=== PATIENT | female | born 1975 | race Caucasian/White ===

== ENCOUNTER 2019-09-21 10:57 | Outpatient (CLI) | payer BC, SELFPAY ==
--- NOTE | ~2019-09-21 | XR_ITS ---
XR shoulder LT min 2V DATE: 09/21/2019 11:27 INDICATION: Left shoulder pain TECHNIQUE: 4 views COMPARISON: None FINDINGS: No fracture or dislocation, periosteal reaction or bone destruction or abnormal soft tissue calcification. IMPRESSION: Negative Reviewed, dictated and finalized at location A. IMPRESSION: Negative
== END 2019-09-21 10:58 | disposition home or self-care (01) ==
LOC: ANHIMG 11:00
PROVIDERS: PCP Family Medicine; Visit Provider Physician Assistant
DX: M25.512 Pain in left shoulder (principal)
CPT/HCPCS: 73030

== ENCOUNTER 2020-02-23 11:47 | Outpatient (NON) | payer BC, SELFPAY ==
[2020-02-26 13:54] LABS: SARS-CoV-2 RNA PCR Negative
== END 2020-02-23 11:48 ==
LOC: ANHCOVIDDT 11:48
PROVIDERS: PCP Family Medicine; Visit Provider Family Medicine
DX: Z20.828 Contact with and (suspected) exposure to other viral communicable diseases (principal); J02.9 Acute pharyngitis, unspecified; R50.9 Fever, unspecified; R51.9 Headache, unspecified
CPT/HCPCS: 87635; C9803; U0003

== ENCOUNTER 2020-03-17 06:39 | Outpatient (CLI) | payer BC, SELFPAY ==
--- NOTE | ~2020-03-17 | MR_ITS ---
EXAMINATION: MR shoulder LT wo con DATE: 03/17/2020 07:56 INDICATION: Left shoulder pain TECHNIQUE: Magnetic resonance imaging (MRI) of the left shoulder was performed without intravenous co ntrast. Sequences included axial PD-weighted FS FSE, coronal oblique PD-weighted FS FSE, coronal obli que T2-weighted FS FSE, sagittal PD-weighted FS FSE, and sagittal T1-weighted SE. COMPARISON: Left shoulder radiograph dated 09/21/2019 FINDINGS: Coracoacromial arch: The acromion undersurface is flat in morphology (type I). The coracoacromial ligament is normal. Mild acromioclavicular arthrosis with mild subarticular cystic changes both sides of the joint space and mild subarticular edema at the lateral clavicle. Rotator cuff: The supraspinatus, infraspinatus and teres minor tendons are normal. The subscapularis tendon is norm al. Normal rotator cuff muscle bulk and signal. Biceps tendon, glenoid labrum and glenohumeral cartilage: Long head of the biceps tendon is normal. Glenoid labrum is normal. Glenohumeral cartilage is normal. Fluid: Physiologic amount of fluid in the glenohumeral joint and biceps tendon sheath. No loose osteochondra l bodies. No abnormal fluid signal in the subacromial/subdeltoid bursa to suggest bursitis. Bones: Bone alignment is normal. No fracture or pathologic marrow replacing process. IMPRESSION: 1. Mild acromioclavicular arthrosis. Otherwise normal left shoulder MRI. Reviewed, dictated and finalized at location A. 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
== END 2020-03-17 06:40 | disposition home or self-care (01) ==
PROVIDERS: PCP Family Medicine; Visit Provider Family Medicine
DX: M75.82 Other shoulder lesions, left shoulder (principal)
CPT/HCPCS: 73221

== ENCOUNTER 2020-05-16 09:25 | Outpatient (CLI) | payer BC, SELFPAY ==
--- NOTE | ~2020-05-16 | MM_ITS ---
EXAMINATION: MM screening [facility] BI w derek HISTORY: Screening mammogram TECHNIQUE: Craniocaudal and mediolateral oblique 3-D tomosynthesis images were obtained and synthetic 2-D images were generated. CAD analysis was submitted and interpreted. COMPARISON: 01/02/2018, 01/19/2016 BREAST PARENCHYMAL COMPOSITION: There are scattered areas of fibroglandular density. FINDINGS: RIGHT BREAST: A stable mass in the upper outer quadrant of the right breast has the appearance of an intramammary lymph node There is no evidence of suspicious mass, calcification, or architectural dist ortion to suggest malignancy. There has been no significant interval change. LEFT BREAST: There is a possible mass in the anterior/middle third of the lower breast best appreciat ed 4 cm from the nipple on craniocaudal tomosynthesis image . IMPRESSION: 1. Possible left breast mass. 2. Additional mammographic views and possible breast ultrasound are recommended. BI-RADS Category 0: Incomplete: Needs additional imaging evaluation. Reviewed, dictated and finalized at location A. NSED THERAPIST IMPRESSION: 1. Possible left breast mass. 2. Additional mammographic views and possible breast ultrasound are recommended . BI-RADS Category 0: Incomplete: Needs additional imaging evaluation.
== END 2020-05-16 09:26 | disposition home or self-care (01) ==
LOC: ANHIMG 09:28
PROVIDERS: Family Provider Family Medicine; PCP Family Medicine; Visit Provider Family Medicine
DX: Z12.31 Encounter for screening mammogram for malignant neoplasm of breast (principal); R92.8 Other abnormal and inconclusive findings on diagnostic imaging of breast
CPT/HCPCS: 77063; 77067

== ENCOUNTER 2020-06-12 13:41 | Outpatient (CLI) | payer BC, SELFPAY ==
--- NOTE | ~2020-06-12 | MMUS_ITS ---
EXAMINATION: MM diagnostic mammo unilat LT, US breast LT limited HISTORY: Follow-up left breast asymmetry TECHNIQUE: Additional 3-D tomosynthesis images of the left breast were performed and synthetic 2-D im ages were generated. CAD analysis was submitted and interpreted. High resolution Limited left breast ultrasound was performed. COMPARISON: 05/16/2020 BREAST PARENCHYMAL COMPOSITION: Breast composed of scattered areas of fibroglandular density. FINDINGS: MAMMOGRAPHIC FINDINGS: There are no suspicious masses, calcifications or architectural distortion in the left breast to sugg est malignancy. ULTRASOUND: Limited left breast ultrasound: At 6:00, 3 cm from the nipple, there is a small hypoechoic mass with central echogenicity measuring 3 mm, most likely benign intramammary lymph node. IMPRESSION: 1. Probable benign intramammary lymph node of the left breast at 6:00, 3 cm from the nipple. 2. Recommend 6 month follow-up left breast ultrasound BI-RADS category 3, probably benign findings. Reviewed, dictated and finalized at location A. 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 Probable benign intramammary lymph node of the left breast at 6:00, 3 cm fro m the nipple. 2. Recommend 6 month follow-up left breast ultrasound BI-RADS category 3, probably benign findings.
== END 2020-06-12 13:42 | disposition home or self-care (01) ==
PROVIDERS: PCP Family Medicine; Visit Provider Family Medicine
DX: N63.20 Unspecified lump in the left breast, unspecified quadrant (principal); R92.8 Other abnormal and inconclusive findings on diagnostic imaging of breast
CPT/HCPCS: 76642; 77065

== ENCOUNTER → 2021-04-22 02:03 | Outpatient (CLI) | payer BC, SELFPAY ==
[2021-04-23 01:23] LABS: SARS-CoV-2 RNA PCR Negative
== END ==
PROVIDERS: PCP Family Medicine; Visit Provider Physician Assistant Medical
DX: R51.9 Headache, unspecified (principal); Z20.822 Contact with and (suspected) exposure to COVID-19
CPT/HCPCS: C9803; U0003; U0005

== ENCOUNTER 2021-07-10 09:21 | Outpatient (CLI) | payer BC, SELFPAY ==
--- NOTE | 2021-07-10 | ECG_ITS ---
Measurements Intervals [place] Rate: 92 P: 69 [place]: 140 QRS: 48 QRSD: 81 T: 53 QT: 349 QTc: 433 Interpretive Statements SINUS RHYTHM NONSPECIFIC ST AND T-WAVE ABNORMALITY ABNORMAL ECG COMPARED TO ECG 04/30/2019 14:06:27 NO SIGNIFICANT CHANGE Electronically Signed On 07-10-2021 17:15:56 CDT by Matthew Lr M.D.
[2021-07-10 10:02] LABS: Alanine Aminotransferase 21 U/L (4-35); Albumin Level 4.8 g/dL (3.5-5.1); Alkaline Phosphatase 85 U/L (38-126); Anion Gap 7 mmol/L (8-16); Aspartate Amino Transferase 26 U/L (14-36); Bilirubin,Total 0.5 mg/dL (0.2-1.3); Blood Urea Nitrogen 8 mg/dL (7-17); Calcium 9.3 mg/dL (8.4-10.2); Carbon Dioxide 29 mmol/L (22-30); Chloride 104 mmol/L (98-107); Cholesterol 307 mg/dL (0-200); Estimated Glomerular Filt Rate > 60; Glucose 109 mg/dL (65-110); HDL Direct 55 mg/dL; Potassium 4.4 mmol/L (3.4-5.0); Sodium 140 mmol/L (137-145); Triglycerides 88 mg/dL (<150)
[2021-07-10 10:15] LABS: LDL Cholesterol Direct 181 mg/dL
[2021-07-10 10:39] LABS: Vitamin D 25 Hydroxy 56.1 ng/mL
== END 2021-07-10 09:22 | disposition home or self-care (01) ==
PROVIDERS: PCP Family Medicine; Visit Provider Plastic Surgery
DX: E53.8 Deficiency of other specified B group vitamins (principal); R79.89 Other specified abnormal findings of blood chemistry; E78.2 Mixed hyperlipidemia; R94.31 Abnormal electrocardiogram [ECG] [EKG]
CPT/HCPCS: 36415; 80053; 80061; 82306; 82607; 93005

== ENCOUNTER 2021-09-09 12:20 | Outpatient (CLI) | payer BC, SELFPAY ==
--- NOTE | ~2021-09-09 | XR_ITS ---
EXAMINATION: XR toe 5th RT min 2V DATE: 09/09/2021 13:38 INDICATION: Posttraumatic right fifth toe pain TECHNIQUE: Dorsal plantar, lateral and 2 oblique views of the right fifth were obtained. COMPARISON: None FINDINGS: Nondisplaced transverse fracture at the proximal metadiaphysis of the right fifth proximal phalanx wi th 30 degrees lateral angulation. No other fractures identified. Joint spaces are normal. IMPRESSION: Nondisplaced fracture across the right fifth proximal phalanx with 30 degrees lateral angulation. Reviewed, dictated and finalized at location B. IMPRESSION: Nondisplaced fracture across the right fifth proximal phalanx with 30 degrees l ateral angulation.
== END 2021-09-09 12:21 | disposition home or self-care (01) ==
PROVIDERS: PCP Family Medicine; Visit Provider Nurse Practitioner Family
DX: S92.514A Nondisplaced fracture of proximal phalanx of right lesser toe(s), initial encounter for closed fracture (principal); X58.XXXA Exposure to other specified factors, initial encounter
CPT/HCPCS: 73660

== ENCOUNTER 2022-08-25 09:59 | Outpatient (CLI) | payer BC, SELFPAY ==
[2022-08-25 14:39] LABS: Kit Draw Collected
== END 2022-08-25 10:00 | disposition home or self-care (01) ==
LOC: ANHGOSHLAB 10:01
PROVIDERS: PCP Family Medicine; Visit Provider Nurse Practitioner Family
DX: E78.2 Mixed hyperlipidemia (principal); R79.89 Other specified abnormal findings of blood chemistry; I10 Essential (primary) hypertension; E04.2 Nontoxic multinodular goiter
CPT/HCPCS: 36415

== ENCOUNTER → 2022-12-03 09:50 | Outpatient (CLI) | payer BC, SELFPAY ==
--- NOTE | ~2022-12-03 | MR_ITS ---
EXAMINATION: MR cervical spine wo con DATE: 12/03/2022 10:54 INDICATION: Cervical radicular pain. TECHNIQUE: Magnetic resonance imaging (MRI) of the cervical spine was performed without intravenous c ontrast. Sequences included sagittal T2-weighted FSE, sagittal T2-weighted FS FSE, sagittal T1-weight ed FSE, axial MERGE, and axial T2-weighted FSE. COMPARISON: None FINDINGS: Bone alignment is normal. Vertebral body heights are normal. There is mildly decreased disc height at C4-C5, C5-C6, and C6-C7. There is increased T2-weighted signal intensity in the spinal cor d from C5-C6 to C7. The following disc levels are specifically discussed: C2-C3: The disc does not extend beyond the endplate margin. There is no uncovertebral joint osteoarth ritis. There is severe right and moderate left facet joint osteoarthritis. There is mild right neural foraminal stenosis. There is no central canal stenosis. C3-C4: There is a central extrusion. There is mild bilateral uncovertebral joint osteoarthritis. Ther e is moderate bilateral facet joint osteoarthritis. There is mild bilateral neural foraminal stenosis . There is mild central canal stenosis. C4-C5: The disc is bulging. There is severe bilateral uncovertebral joint osteoarthritis. There is se jae bilateral facet joint osteoarthritis. There is moderate bilateral neural foraminal stenosis. The re is mild central canal stenosis. C5-C6: The disc is bulging with superimposed central extrusion. There is severe bilateral uncovertebr al joint osteoarthritis. There is severe bilateral facet joint osteoarthritis. There is moderate righ t and mild left neural foraminal stenosis. There is severe central canal stenosis with ventral and do rsal indentation of the spinal cord. C6-C7: The disc is bulging with superimposed right central extrusion with 2.0 cm inferior extension. There is moderate bilateral uncovertebral joint osteoarthritis. There is severe bilateral facet joint osteoarthritis. There is mild lateral neural foraminal stenosis. There is mild central canal stenosi s. C7-T1: The disc does not extend beyond the endplate margin. There is no uncovertebral joint osteoarth ritis. There is mild bilateral facet joint osteoarthritis. There is no neural foraminal stenosis. The re is mild central canal stenosis. IMPRESSION: 1. Myelomalacia from C5-C6 through C7. 2. Severe cervical spondylosis. Reviewed, dictated and finalized at location A.
== END ==
PROVIDERS: PCP Family Medicine; Visit Provider Nurse Practitioner Family
DX: M47.22 Other spondylosis with radiculopathy, cervical region (principal)
CPT/HCPCS: 72141

== ENCOUNTER → 2023-02-04 08:52 | Outpatient (CLI) | payer BC, SELFPAY ==
--- NOTE | ~2023-02-04 | MR_ITS ---
EXAMINATION: MR lumbar spine wo con DATE: 02/04/2023 09:26 INDICATION: Low back pain. Left leg numbness. Right leg weakness. TECHNIQUE: Magnetic resonance imaging (MRI) of the lumbar spine was performed without intravenous con trast. Sequences included sagittal T2-weighted FSE, sagittal T2-weighted FS FSE, sagittal T1-weighted FSE, and axial T2-weighted FSE. COMPARISON: Lumbar spine MRI 11/21/2018 FINDINGS: Bone alignment is normal. Vertebral body heights are normal. There is a chronic left L5 par s defect. There is mildly decreased disc height at L4-L5. The distal spinal cord signal intensity is normal. The conus medullaris is at T12-L1. The following disc levels are specifically discussed: L1-L2: There is a left foraminal protrusion. There is moderate right and mild left facet joint osteoa rthritis. There is mild left neural foraminal stenosis. There is no central canal stenosis. L2-L3: The disc is mildly bulging. There is severe bilateral facet joint osteoarthritis. There is mil d bilateral neural foraminal stenosis. There is no central canal stenosis. L3-L4: The disc is mildly bulging. There is severe bilateral facet joint osteoarthritis. There is mil d bilateral neural foraminal stenosis. There is no central canal stenosis. L4-L5: The disc is bulging and has an annular fissure. There is severe bilateral facet joint osteoart hritis. There is moderate bilateral neural foraminal stenosis. There is mild central canal stenosis. L5-S1: The disc is mildly bulging. There is severe bilateral facet joint osteoarthritis. There is mil d bilateral neural foraminal stenosis. There is no central canal stenosis. IMPRESSION: 1. Moderate spondylosis at L4-L5 with slight worsening. Mild spondylosis at other levels. 2. Chronic left L5 pars defect. Reviewed, dictated and finalized at location E. IMPRESSION: 1. Moderate spondylosis at L4-L5 with slight worsening. Mild spondylosis at oth er levels. 2. Chronic left L5 pars defect.
== END ==
PROVIDERS: PCP Neurological Surgery; Visit Provider Nurse Practitioner Family
DX: M43.06 Spondylolysis, lumbar region (principal)
CPT/HCPCS: 72148

== ENCOUNTER → 2023-03-15 10:01 | Outpatient (CLI) | payer BC, SELFPAY ==
--- NOTE | ~2023-03-15 | XR_ITS ---
AP view of the pelvis and AP and lateral views of the bilateral hips Clinical history: Pain Findings: No acute fracture or dislocation is seen. Osseous alignment is anatomic. Bilateral hip and SI joint spaces are preserved. Soft tissues are unremarkable. Impression: No significant abnormality is seen. Reviewed, dictated and finalized at [facility]. 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
== END ==
DX: M25.552 Pain in left hip (principal); M25.551 Pain in right hip
CPT/HCPCS: 73521

== ENCOUNTER → 2023-04-21 09:28 | Outpatient (CLI) | payer BC, SELFPAY ==
--- NOTE | ~2023-04-21 | XR_ITS ---
XR_CERV2-3V_CR DATE: 04/21/2023 10:08 INDICATION: Cervical myelopathy. Surgery in December 2022 TECHNIQUE: AP, open-mouth, lateral views COMPARISON: None FINDINGS: Status post anterior and interbody cervical spine surgical fusion at C5-6. Mild degenerative disease at C4-5 and C6-7. No fracture or dislocation or locked facet or prevertebral soft tissue swelling. C1 and C2 are normal ly aligned and the odontoid process is intact. IMPRESSION: Status post anterior cervical spine surgical fusion at C5-6 Reviewed, dictated and finalized at Location A. Reviewed, dictated and finalized at location L. ISSIONING EDITOR
--- NOTE | ~2023-04-21 | XR_ITS ---
XR lumbar spine min 4V DATE: 04/21/2023 10:08 INDICATION: Low back pain TECHNIQUE: AP, lateral, flexion and extension lateral standing views COMPARISON: 02/05/2020 MRI lumbar spine 01/19/2016 lumbar spine FINDINGS: Mild lumbar levoscoliosis. Minimal grade 1 anterolisthesis at L3-4 and L4-5. There is no instability on flexion or extension. Mild loss of height at L4-5 interspace. Minimal degenerative spurring at L2-3 and L3-4. No fracture or bone destruction. The pedicles are intact. Sacroiliac joints appear normal. IMPRESSION: Minimal grade 1 anterolisthesis at L3-4 and L4-5 Mild levo scoliosis Minimal degenerative change Reviewed, dictated and finalized at location L. 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
== END ==
PROVIDERS: PCP Nurse Practitioner Family; Visit Provider Neurological Surgery
DX: G95.9 Disease of spinal cord, unspecified (principal); Z98.1 Arthrodesis status; M54.50 Low back pain, unspecified; M41.9 Scoliosis, unspecified
CPT/HCPCS: 72040; 72110

== ENCOUNTER 2023-07-20 10:21 | Outpatient (CLI) | payer BC, SELFPAY ==
--- NOTE | ~2023-07-20 | MM_ITS ---
EXAMINATION: MM screening [facility] BI w derek HISTORY: Screening mammogram TECHNIQUE: Craniocaudal and mediolateral oblique 3-D tomosynthesis images were obtained and synthetic 2-D images were generated. CAD analysis was submitted and interpreted. COMPARISON: 06/12/2020 diagnostic left mammogram and limited left breast ultrasound 05/16/2020 bilateral screening mammogram BREAST PARENCHYMAL COMPOSITION: The breasts are heterogeneously dense, which may obscure small masses . Breast density is increased compared to prior examinations; the patient is currently taking hormone replacement therapy. FINDINGS: There is no evidence of suspicious mass, calcification, or architectural distortion to sugg est malignancy in either breast. There has been no suspicious interval change. IMPRESSION: 1. No mammographic evidence of malignancy. 2. Recommend routine screening mammography in one year. BI-RADS Category 1: Negative Reviewed, dictated and finalized at location A.
== END 2023-07-20 10:22 ==
LOC: MICIMG 10:23
PROVIDERS: PCP Family Medicine; Visit Provider Nurse Practitioner Family
DX: Z12.31 Encounter for screening mammogram for malignant neoplasm of breast (principal)
CPT/HCPCS: 77063; 77067

== ENCOUNTER 2023-09-07 18:22 | Emergency (ER) | payer BC, SELFPAY ==
--- NOTE | ~2023-09-07 | XR_ITS ---
EXAM: XR knee RT min 4V DATE: 09/07/2023 18:48 HISTORY: fall, medial knee pain . COMPARISON: X-ray tibia/fibula 01/06/2016. FINDINGS: Normal mineralization. No fracture or dislocation. No lytic or blastic lesion. Mild tricom partmental osteoarthritis. Small volume joint fluid.. No erosion or periosteal change. Soft tissues w ithin normal limits. IMPRESSION: No acute osseous finding in the right knee. Reviewed, dictated and finalized at location K.
--- NOTE | 2023-09-07 18:26 | ED.LOWEXIN ---
HPI - Extremity Injury (Lower) General Chief Complaint: Extremity Injury, Lower Stated Complaint: R KNEE INJURY Time Seen by Provider: 09/07/23 18:36 Source: patient and RN notes reviewed Mode of arrival: ambulatory Limitations: no limitations History of Present Illness HPI Narrative: 47-year-old female presents with concern for right knee pain. Reports several weeks ago she fell and hit landed on her knee. Reports she had been taking her regularly scheduled pain medication over the last several weeks the pain and started to get better but now she recently moved and has been more active in the pain has gotten worse. She reports medial swelling. She has been wearing a brace that she says helps with pain and swelling. MD complaint: knee injury Related Data Home Medications Medication Instructions Recorded Confirmed duloxetine 60 mg capsule,delayed 60 mg PO BID 09/21/19 09/07/23 release (Cymbalta) buspirone 15 mg tablet 15 mg PO BID 02/06/20 09/07/23 ramelteon 8 mg tablet (Rozerem) 8 mg PO HS 02/06/20 09/07/23 tizanidine 4 mg tablet 4 mg PO TID PRN Muscle Spasm 02/06/20 09/07/23 oxycodone 7.5 mg tablet,oral ONLY 7.5 mg PO Q6H PRN Pain 02/17/21 09/07/23 (not for feeding tubes) dextroamphetamine-amphetamine 30 30 mg PO DAILY 09/16/21 09/07/23 mg tablet (Adderall) lamotrigine 100 mg tablet 100 mg PO BID 09/16/21 09/07/23 (Lamictal) hydroxyzine HCl 25 mg tablet 25 mg PO PRN PRN Anxiety 08/25/22 09/07/23 prazosin 2 mg capsule 4 mg PO QHS 04/21/23 09/07/23 Allergies Allergy/AdvReac Type Severity Reaction Status Date / Time prednisone Allergy Unknown insomnia,ar Verified 09/07/23 18:39 thralgias pregabalin Allergy Unknown Hives Verified 09/07/23 18:39 Sulfa (Sulfonamide Allergy Unknown rash, Verified 09/07/23 18:39 Antibiotics) fevers tramadol Allergy Unknown seizure Verified 09/07/23 18:39 (also on wellbutrin at the time) amoxicillin [From Augmentin] Allergy Nausea and Verified 09/07/23 18:39 Vomiting bupropion Allergy Seizure Verified 09/07/23 18:39 clavulanic acid Allergy Nausea and Verified 09/07/23 18:39 [From Augmentin] Vomiting eszopiclone AdvReac Unknown Other Verified 09/07/23 18:39 Review of Systems Review of Systems: CONSTITUTIONAL: Denies malaise, chills, sweats, or fever. SKIN: Denies rash or itching, open skin, laceration, abrasion, redness, warmth, swelling. MUSCULOSKELETAL: Reports right knee pain NEUROLOGIC: Denies numbness, weakness All systems reviewed & are unremarkable except as noted in HPI and below PMFSH Past Medical History Medical History Anxiety FH: colon cancer aunt FH: colon polyps grandfather Fracture of fifth toe, right, closed proximal phalanx Headache Papanicolaou smear of cervix with atypical squamous cells of undetermined significance (ASC-US) 2019 pap normal /hpv neg Surgical History Surgical History S/P trigger finger release (~05/01/19) Thumb Family History Family History Grandparent Cerebrovascular accident Family history of malignant neoplasm of breast Other Carcinoma of colon Social History Social History Years smoked: 9 Smoking status: Former smoker Tobacco type: cigarettes and e-cigarettes/vaping Smoking end date: 04/11/10 Additional smoking assessment comments: QUIT CIGARETTES, NOW VAPING NICOTINE Alcohol intake: never Substance use: current Substance use type: marijuana Living arrangements: alone 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
[2023-09-07 18:30] VITALS: BP 153/92; PULSE 84; RESP 18; TEMP 37.2; O2SAT 100
== END 2023-09-07 19:11 | disposition home or self-care (01) ==
PROVIDERS: Emergency Provider Nurse Practitioner; PCP Family Medicine
DX: M25.461 Effusion, right knee (principal); F17.290 Nicotine dependence, other tobacco product, uncomplicated; F41.9 Anxiety disorder, unspecified
CPT/HCPCS: 73564; 99213; G0463

== ENCOUNTER 2023-10-12 08:59 | Outpatient (CLI) | payer BC, SELFPAY ==
--- NOTE | ~2023-10-12 | MR_ITS ---
EXAMINATION: MR knee RT wo con DATE: 10/12/2023 09:34 INDICATION: Medial meniscal tear presenting with posttraumatic medial right knee pain and swelling TECHNIQUE: Magnetic resonance imaging (MRI) of the right knee was performed without intravenous contr ast. Sequences included coronal PD-weighted FSE, coronal PD-weighted FS FSE, sagittal T2-weighted FS E, sagittal PD-weighted FS FSE and axial PD weighted fat saturated FSE. COMPARISON: None. FINDINGS: Medial compartment: There is a longitudinal horizontal tear of the posterior body and posterior horn of the medial menisc us. There appears to be some loss of meniscal tissue along the inferior aspect of the posterior horn. There appears be distortion along the inner free edge at the mid body of the meniscus on the radial image and with additional meniscal tissue along the inferior gutter along the anterior portion of the body. Appearance suggests the tear is likely complex with anterior displacement of a meniscal flap a rising from the most posterior body and posterior horn. Small partial-thickness chondral fissuring wi thout degenerative subchondral changes along the medial margin of the anterior weightbearing medial f emoral condyle. Lateral compartment: Lateral meniscus is normal. Articular cartilage is normal. Patellofemoral compartment: Deep chondral fissure with mild underlying cystlike change at the cephalad aspect of the medial savage lar facet. Additional partial-thickness chondral fissure extending inferolaterally to the patellar ap ical ridge without degenerative subchondral changes. Cartilage at the lateral patellar facet and the trochlea remain normal. Ligaments and tendons: Anterior and posterior cruciate ligaments are normal. The medial collateral ligament and fibular anjana ateral ligament complex are normal. The extensor mechanism is normal. The visualized medial and later al hamstring tendons as well as the iliotibial band are normal. Fluid: Small right knee joint effusion at the suprapatellar pouch. No loose osteochondral bodies identified. Very small Brito's cyst. Osseous/other: Aside from the tiny focus of subarticular cystlike change at the lateral patellar facet there is norm al marrow signal. No fracture or pathologic marrow replacing process. IMPRESSION: 1. Tear, likely complex of the body and posterior horn of the medial meniscus with suggestion of a di splaced meniscal flap. 2. Mild osteoarthritis at the medial and patellofemoral compartments. 3. Small right knee joint effusion with very small Brito's cyst. Reviewed, dictated and finalized at location B. IMPRESSION: 1. Tear, likely complex of the body and posterior horn of the medial meniscus w ith suggestion of a displaced meniscal flap. 2. Mild osteoarthritis at the medial and patellofemoral compartments. 3. Small right knee joint effusion with very small Brito's cyst.
== END 2023-10-12 09:00 ==
LOC: GOSHIMG 09:00
PROVIDERS: PCP Family Medicine; Visit Provider Orthopaedic Surgery
DX: S83.241A Other tear of medial meniscus, current injury, right knee, initial encounter (principal); X58.XXXA Exposure to other specified factors, initial encounter; M25.461 Effusion, right knee; M17.11 Unilateral primary osteoarthritis, right knee
CPT/HCPCS: 73721

== ENCOUNTER 2023-11-28 01:57 | Day surgery (SDC) | payer BC, SELFPAY ==
--- NOTE | 2023-11-24 13:58 | PM.IMHP ---
H&P: HPI History of Present Illness Date/Time: 11/24/23 13:58 Chief Complaint: Patient has mechanical catching locking of her right knee. She has failed conservative treatment and she would like to proceed with arthroscopy partial meniscectomy proceed as indicated. Review of Systems Musculoskeletal: Musculoskeletal: Reports arthralgias, Reports joint swelling and Reports stiffness PMFSH Past Medical History Medical History Anxiety FH: colon cancer aunt FH: colon polyps grandfather Fracture of fifth toe, right, closed proximal phalanx Headache Papanicolaou smear of cervix with atypical squamous cells of undetermined significance (ASC-US) 2019 pap normal /hpv neg Surgical History Surgical History H/O spinal fusion S/P trigger finger release (~05/01/19) Thumb Family History Family History Grandparent Cerebrovascular accident Family history of malignant neoplasm of breast Father No problems noted. Mother Hyperlipemia Other Carcinoma of colon Social History Social History Years smoked: 9 Smoking status: Former smoker Tobacco type: cigarettes and e-cigarettes/vaping Second hand tobacco smoke exposure: No Smoking end date: 04/11/10 Additional smoking assessment comments: QUIT CIGARETTES, NOW VAPING NICOTINE Alcohol intake: never Substance use: current Substance use type: marijuana Do You Feel Safe in your Home?: Yes Lack of Transportation: No Lack of Food: Never True Current Housing: I Have Housing Concerned About Future Housing: No Difficulty Paying Gas/Electric Bills: No Difficulty Paying for Meds: YES Currently Unemployed: No Education: Master's Degree or Higher Difficulty w/ Childcare or Family Care: No Living arrangements: with roommate(s) 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 Gender identity (if verbalized by the patient): Female Spiritual care concerns: No Meds Home Medications and Allergies Home Medications Medication Instructions Recorded Confirmed Type duloxetine 60 mg capsule,delayed 60 mg PO BID 09/21/19 10/26/23 History release (Cymbalta) buspirone 15 mg tablet 15 mg PO BID 02/06/20 10/26/23 History ramelteon 8 mg tablet (Rozerem) 8 mg PO HS 02/06/20 10/26/23 History tizanidine 4 mg tablet 4 mg PO TID PRN Muscle Spasm 02/06/20 10/26/23 History dextroamphetamine-amphetamine 30 30 mg PO DAILY 09/16/21 10/26/23 History mg tablet (Adderall) lamotrigine 100 mg tablet 100 mg PO BID 09/16/21 10/26/23 History (Lamictal) hydroxyzine HCl 25 mg tablet 25 mg PO PRN PRN Anxiety 08/25/22 10/26/23 History omeprazole 20 mg capsule,delayed 20 mg PO DAILY #90 caps 04/18/23 10/26/23 Rx release prazosin 2 mg capsule 4 mg PO QHS 04/21/23 10/26/23 History celecoxib 200 mg capsule See Rx Instructions .Route 06/27/23 10/26/23 Rx .COMPLEX #90 caps acyclovir 400 mg tablet See Rx Instructions .Route 08/15/23 10/26/23 Rx .COMPLEX #180 tabs spironolactone 50 mg tablet 50 mg PO DAILY #90 tabs 09/15/23 10/26/23 Rx oxycodone-acetaminophen 7.5 mg-325 tablet PO 09/22/23 10/26/23 History mg tablet tretinoin 0.01 % topical gel 1 applic topical QHS #45 grams 10/26/23 10/26/23 Rx estradiol 0.05 mg-norethindrone See Rx Instructions .Route 11/15/23 Rx 0.14 mg/24 hr semiwkly transderm .COMPLEX #8 patches patch (CombiPatch) Allergies Allergy/AdvReac Type Severity Reaction Status Date / Time prednisone Allergy Unknown insomnia,ar Verified 10/20/23 10:24 thralgias pregabalin Allergy Unknown Hives Verified 10/20/23 10:24 Sulfa (Sulfonamide Allergy Unknown rash, Verified 10/20/23 10:24 Antibiotics) fevers tramadol Allergy Unknown seizure Verified 10/20/23 10:24
[2023-11-25 14:36] VITALS: BMI 24.9
--- NOTE | 2023-11-25 15:09 | PC.NURSE ---
Report to the Outpatient Waiting Room, entrance under the green pavilion located off [facility], at time 0800AM on date 11/28/23 . Planned Procedure Time: __1000AM . Time changes happen often and if your time is changed the preop area will call you the afternoon before. - You and your visitor will be asked to self-screen and do not enter if you have any COVID symptoms. - A mask is optional within the hospital at this time. Patients may have clear liquids (water, carbonated beverages, clear teas, apple juice) until 3 hours prior to surgery with a maximum of 20 ounces. - No food from midnight until time of surgery Take the following medications with a SIP of water the morning of surgery: _ACYCLOVIR, BUSPIRONE, DULOXETINE, HYDROXYZINE, LAMICTAL, PERCOCET DO NOT STOP ANY OF YOUR OTHER PRESCRIPTION MEDICATIONS PRIOR TO SURGERY ?EXCEPT THE FOLLOWING Medications to discontinue per physician CELEBREX Date to take last dose___11/25/23 Please no make-up, nail puerto rican, hairspray, perfume, deodorant, or body powder the day of surgery. No jewelry (including any body piercings) or valuables the day of surgery, leave them at home. Please take a shower or bath the night before, or the morning of, surgery with an antibacterial soap. Wear comfortable, loose fitting clothing. - Jewelry must be removed prior to entering the operating room. Rings and piercings that are not removed may be cut off. - The hospital will not accept responsibility for valuables. - Please leave all valuables, including medications, at home the day of surgery. If you are going home after surgery, a licensed dinkey driver must drive you home. - NO public transportation without another adult if you receive anesthesia. - We recommend that an adult stay with you for 24 hours following discharge. - We also recommend that you do not drive, make important decision, drink alcoholic beverages, or take any drugs that were not prescribed by your health care provider for at least 24 hours after your discharge time. Follow any additional instructions given to you from your surgeon. If you or anyone in your household have experienced Covid symptoms in the past week, please notify your surgeon or the nurse liaison at the phone number below for possible testing. Telephone instructions given to __PAIGE and asked if any additional questions and then verbalized understanding. Patient advised to call surgeon office or pre surgery nurse liaison [phone] if any additional questions.
[2023-11-28] VITALS (9 sets, daily range): BP systolic 98–125; BP diastolic 60–96; PULSE 70–98; RESP 12–18; TEMP 36.1–36.5; O2SAT 97–100
[2023-11-28] MEDS: LACTATED RINGERS 1,000 ML 30 ML IV CONT (08:40)
--- NOTE | 2023-11-28 09:11 | WPDHPUPDATE1 ---
History and Physical Update Update Date/Time: 11/28/23 09:11 History and Physical has been reviewed, including an updated exam of the patient. There are NO changes in the patient's condition. Risks, benefits, and alternatives have been discussed and questions answered. Patient agrees to proceed with procedure.
[2023-11-28 09:21] LABS: Beta HCG Quantitative < 2.39 mIU/ML
[2023-11-28] MEDS: KETOROLAC 15 MG/ML VIAL (*BKC) IV PUSH (09:35)
--- NOTE | 2023-11-28 09:44 | WPDANESEPPF ---
Anes - Initial Pre Proc Eval Procedure: Operation Date: 11/28/23 10:00 Proposed Procedures p Right Knee Arthroscopy with Partial Medial Meniscectomy, Proceed as Indicated - Isael Washburn MD Date/Time: 11/28/23 09:44 Surgeon: Isael Washburn MD Pre Op Diagnosis: Right Medial Meniscal Tear Patient Data Age: 47 Gender: F Height: 1.63 m Weight: 64.5 kg Last Vital Signs Temp 97.7 F 11/28/23 09:38 Pulse 98 11/28/23 09:38 Resp 16 11/28/23 09:38 BP 108/76 11/28/23 09:38 Pulse Ox 99 11/28/23 09:38 O2 Del Method Room Air 11/28/23 09:38 Allergies Allergy/AdvReac Type Severity Reaction Status Date / Time bupropion Allergy Intermediate Seizure Verified 11/25/23 15:08 clavulanic acid Allergy Intermediate Nausea and Verified 11/25/23 15:08 [From Augmentin] Vomiting prednisone Allergy Unknown insomnia,ar Verified 10/20/23 10:24 thralgias pregabalin Allergy Unknown Hives Verified 10/20/23 10:24 Sulfa (Sulfonamide Allergy Unknown rash, Verified 10/20/23 10:24 Antibiotics) fevers tramadol Allergy Unknown seizure Verified 10/20/23 10:24 (also on wellbutrin at the time) eszopiclone AdvReac Unknown Other Verified 10/20/23 10:24 Home Medications Medication Instructions Recorded Confirmed Type duloxetine 60 mg capsule,delayed 60 mg PO BID 09/21/19 11/28/23 History release (Cymbalta) buspirone 15 mg tablet 15 mg PO BID 02/06/20 11/28/23 History ramelteon 8 mg tablet (Rozerem) 8 mg PO HS 02/06/20 11/28/23 History tizanidine 4 mg tablet 4 mg PO TID PRN Muscle Spasm 02/06/20 11/28/23 History dextroamphetamine-amphetamine 30 30 mg PO DAILY 09/16/21 11/28/23 History mg tablet (Adderall) lamotrigine 100 mg tablet 100 mg PO BID 09/16/21 11/28/23 History (Lamictal) hydroxyzine HCl 25 mg tablet 25 mg PO PRN PRN Anxiety 08/25/22 11/28/23 History omeprazole 20 mg capsule,delayed 20 mg PO DAILY #90 caps 04/18/23 11/28/23 Rx release prazosin 2 mg capsule 4 mg PO QHS 04/21/23 11/28/23 History celecoxib 200 mg capsule See Rx Instructions .Route 06/27/23 11/28/23 Rx .COMPLEX #90 caps acyclovir 400 mg tablet See Rx Instructions .Route 08/15/23 11/28/23 Rx .COMPLEX #180 tabs spironolactone 50 mg tablet 50 mg PO DAILY #90 tabs 09/15/23 11/28/23 Rx oxycodone-acetaminophen 7.5 mg-325 1 tablet PO Q6H 09/22/23 11/28/23 History mg tablet tretinoin 0.01 % topical gel 1 applic topical QHS #45 grams 10/26/23 11/28/23 Rx estradiol 0.05 mg-norethindrone See Rx Instructions .Route 11/15/23 11/28/23 Rx 0.14 mg/24 hr semiwkly transderm .COMPLEX #8 patches patch (CombiPatch) Laboratory Tests 11/28/23 08:32 Beta HCG, Quant < 2.39 mIU/ML Patient hx anesthesia problems: none Family hx anesthesia problems: none Results Review: All pre-operative results and documents have been reviewed as part of the pre-operative evaluation. [facility] Past Medical History Medical History Anxiety FH: colon cancer aunt FH: colon polyps grandfather Fracture of fifth toe, right, closed proximal phalanx Headache Papanicolaou smear of cervix with atypical squamous cells of undetermined significance (ASC-US) 2019 pap normal /hpv neg Surgical History Surgical History H/O spinal fusion S/P trigger finger release (~05/01/19) Thumb Family History Family History Grandparent Cerebrovascular accident Family history of malignant neoplasm of breast Father No problems noted. Mother Hyperlipemia Other Carcinoma of colon Social History Social History Smoking packs per day: 0.5 Smoking cigarettes per day: 10.0 Years smoked: 10 Smoking pack-years: 5.00 Smoking status: Current some day smoker Tobacco
[2023-11-28] MEDS: ceFAZolin 2 GM/D5W 50 ML 2 GM/50 ML BAG IVPB (09:49)
[2023-11-28] MEDS: LIDO 1%/EPINEPHRINE 1:100,000 20 ML VIAL 15 ML INFILTRATE (10:15)
--- NOTE | 2023-11-28 10:18 | W.PM.PROC2 ---
Procedure Note - Detailed Date of Procedure 11/28/23 Pre-op Diagnosis Right Medial Meniscal Tear Post-op Diagnosis Same Procedure Performed RIGHT knee arthroscopy with partial meniscectomy Surgeon Isael Washburn MD Anesthesia General Description of Procedure Patient brought to operating room # 8. An anesthetic was administered. The knee was sterilely prepped and draped in the usual manner. Standard portals were used. Superior medial portal was used for the outflow cannula, inferior lateral portal was used for the scope, inferior medial portal was used for the instruments. Arthroscopy was performed, the patellar femoral joint degenerative changes. The medial compartment showed a complex tear. The lateral compartment showed fraying. The ACL was intact. Using baskets and anju the meniscal tear was trimmed back to a stable base so the nothing further could be pulled into the joint. Any loose or delaminated fragments were gently trimmed to a stable base. At this point the instruments were withdrawn, sutures placed and patient left the operating room in satisfactory condition. Estimated Blood Loss 20 Drains No Packing No Pathology None sent Complications No immediate complications Condition Stable Disposition PACU [facility] Billing Surgery - Charge Forward: Surgery Billing (72435 Arsthroscopy, partial Meniscectomy)
[2023-11-28] MEDS: fentaNYL CITRATE INJ (*CRX) 100 MCG/2 ML VIAL 25 MCG IV PUSH ×4 (10:49→11:03)
--- NOTE | 2023-11-28 11:37 | SUR.PHASEII ---
Per patient she has taken oxycodone in the past with no allergic reaction.
[2023-11-28] MEDS: oxyCODONE HCL (*CRX) 5 MG TAB IR PO (11:39)
== END 2023-11-28 12:10 | disposition home or self-care (01) ==
PROVIDERS: PCP Family Medicine; Visit Provider Orthopaedic Surgery
PROC: (CPT 29870; principal; 2023-11-28 10:00)
DX: S83.231A Complex tear of medial meniscus, current injury, right knee, initial encounter (principal); M17.11 Unilateral primary osteoarthritis, right knee; M25.461 Effusion, right knee; M71.21 Synovial cyst of popliteal space [Baker], right knee; F41.9 Anxiety disorder, unspecified; F12.90 Cannabis use, unspecified, uncomplicated; F17.290 Nicotine dependence, other tobacco product, uncomplicated; Z79.891 Long term (current) use of opiate analgesic; Z98.890 Other specified postprocedural states; Z98.1 Arthrodesis status; Z80.0 Family history of malignant neoplasm of digestive organs; Z80.3 Family history of malignant neoplasm of breast; Z82.49 Family history of ischemic heart disease and other diseases of the circulatory system; X58.XXXA Exposure to other specified factors, initial encounter
CPT/HCPCS: 29881; 36415; 84702; A9270; J0690; J1100; J1885; J2250; J2405; J2704; J3010; J7120

== ENCOUNTER 2024-01-27 10:27 | Outpatient (CLI) | payer BC, SELFPAY ==
--- NOTE | ~2024-01-27 | MR_ITS ---
MRI of the cervical spine Clinical History: Neck pain, cervical radiculopathy Technique: Axial T2-weighted and gradient images, and sagittal T1-weighted, T2-weighted, and STIR andree ges were acquired. Findings: No acute fracture or subluxation seen. There is anterior and interbody fusion from C5 to C6 . No suspicious bone marrow signal abnormality seen. At C2-C3, there is no disc bulge or herniation. There is mild right facet arthropathy. No central can al stenosis, cord compression, or neural foraminal narrowing. At C3-C4, there is disc osteophyte complex. No canal stenosis or cord compression. Neural foramina ar e preserved despite mild bilateral facet arthropathy. At C4-C5, there is moderate degenerative disc narrowing with diffuse disc osteophyte complex. There i s mild canal stenosis without colten cord compression. There is bilateral neural foraminal narrowing, left worse than right, with bilateral facet arthropathy, left worse than right. At C5-C6, there is mild canal stenosis but no colten cord compression. There is bilateral neural sylvia inal narrowing. At C6-C7, there is advanced degenerative disc narrowing. There is mild disc osteophyte complex. No ca nal stenosis or cord compression. There is bilateral neural foraminal narrowing. There is T2 hyperintense signal centrally in the cord at the C5-C6 level, possibly relating to chroni c, focal myomalacia changes. Paravertebral soft tissues are unremarkable. Impression: Status post anterior and interbody fusion from C5 to C6. Probable chronic mild malacia changes in the spinal cord at the C5-C6 level with T2 hyperintensity at this region. Moderate degenerative spondylosis, particularly at C4-C5.. Reviewed, dictated and finalized at [facility]. Impression: Status post anterior and interbody fusion from C5 to C6. Probable chronic mild malacia changes in the spinal cord at the C5-C6 level wit h T2 hyperintensity at this region. Moderate degenerative spondylosis, particularly at C4-C5..
== END 2024-01-27 10:28 | disposition home or self-care (01) ==
LOC: GOSHIMG 10:28
PROVIDERS: PCP Nurse Practitioner Family; Visit Provider Nurse Practitioner Family
DX: M47.812 Spondylosis without myelopathy or radiculopathy, cervical region (principal); Z98.1 Arthrodesis status; M54.12 Radiculopathy, cervical region
CPT/HCPCS: 72141

== ENCOUNTER 2024-02-29 08:33 | Outpatient (CLI) | payer BC, SELFPAY ==
--- NOTE | ~2024-02-29 | MR_ITS ---
MRI of the thoracic spine Clinical History: Radiculopathy Technique: Axial T2-weighted and gradient images, and sagittal T1-weighted, T2-weighted, and STIR andree ges were acquired. Findings: There is no fracture or subluxation of the thoracic spine. Vertebral bodies maintain normal height and alignment. No bone marrow signal abnormality seen. No significant disc bulge or herniation seen at any thoracic level. There are moderate to advanced fa cet joint degenerative changes, especially over the lower half of the thoracic spine. No spinal canal stenosis or cord compression evident. Neural foramina appear intact throughout the thoracic spine. No epidural mass or collection seen. No abnormal signal seen in the spinal cord. Paravertebral soft t issues are unremarkable. Impression: Facet joint degenerative changes, otherwise essentially unremarkable exam. Reviewed, dictated and finalized at [facility]. 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
--- NOTE | ~2024-02-29 | MR_ITS ---
MRI of the lumbar spine Clinical History: Radiculopathy Technique: Axial T2-weighted images, and sagittal T1-weighted, T2-weighted, and T2 fat-sat images wer e acquired. Findings: There is no fracture or subluxation of the lumbar spine. Vertebral bodies maintain normal h eight and alignment. No focal bone marrow signal abnormalities seen. Probable mild diffuse red marrow conversion. At L1-L2, L2-L3, L3-L4, there is no disc bulge or herniation. There are moderate to advanced facet pradeep int degenerative changes at these levels. No spinal canal stenosis. There is mild bilateral neural fo raminal narrowing at these levels. At L4-L5, there is mild degenerative disc narrowing. There is diffuse disc bulge with severe facet ar thropathy, resulting in moderate spinal canal stenosis/thecal sac compression. There is moderate to a dvanced left neural foraminal narrowing, and severe right neural foraminal narrowing. At L5-S1, there is minimal disc bulge with severe facet arthropathy. No central canal stenosis. There is minimal bilateral neural foraminal narrowing. Paravertebral soft tissues are unremarkable. Impression: Advanced degenerative spondylosis at L4-L5, as detailed above. Additional mild to moderate degenerative changes, as detailed above. Reviewed, dictated and finalized at location . 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 Additional mild to moderate degenerative changes, as detailed above.
== END 2024-02-29 08:34 | disposition home or self-care (01) ==
LOC: GOSHIMG 08:34
PROVIDERS: PCP Neurological Surgery; Visit Provider Neurological Surgery
DX: M47.896 Other spondylosis, lumbar region (principal); M47.894 Other spondylosis, thoracic region
CPT/HCPCS: 72146; 72148

== ENCOUNTER 2024-10-01 08:14 | Outpatient (CLI) | payer BC, SELFPAY ==
--- NOTE | ~2024-10-01 | MM_ITS ---
EXAMINATION: MM screening cece BI w derek HISTORY: Screening mammogram TECHNIQUE: Craniocaudal and mediolateral oblique 3-D tomosynthesis images were obtained and synthetic 2-D images were generated. CAD analysis was submitted and interpreted. COMPARISON: 07/20/2023, 05/16/2020 BREAST PARENCHYMAL COMPOSITION:Not Dense. There are scattered areas of fibroglandular density. FINDINGS: No suspicious mass, calcification, or architectural distortion are identified in either ashu ast to suggest malignancy. There has been no suspicious interval change. IMPRESSION: No mammographic evidence of malignancy. Recommend routine screening mammography in one year. BI-RADS Category 1: Negative Reviewed, dictated and finalized at location .
== END 2024-10-01 08:15 | disposition home or self-care (01) ==
PROVIDERS: PCP Family Medicine; Visit Provider Nurse Practitioner Family
DX: Z12.31 Encounter for screening mammogram for malignant neoplasm of breast (principal)
CPT/HCPCS: 77063; 77067

== ENCOUNTER 2024-10-16 02:17 | Day surgery (SDC) | payer BC, SELFPAY ==
[2024-09-27 09:41] VITALS: BMI 24.9
--- OUTSIDE RECORDS SUMMARY | 2024-10-16 02:19 | XMS_ITS | Clinical Summary ---
Author Organization [facility] Address [address] [place] [address] Care Team Providers Care Racing Secretary And Handicapper Name Role Phone Job Gold MD Primary Care Provider [phone] Source Comments [facility],non-owned Affiliates and Associated Physician Practices is amultiple site organization consisting of ambulatory clinics and hospital sitesin [place], [place], [place] and [place]. This disclosure is being madepursuant to the Care Everywhere program and may not contain all information available regarding this patient. Last updated 17.[facility] appssavvy Allergies Active Allergy Reactions Criticality Noted Date Comments Augmentin 04/08/2011 Pregabalin Itching 04/01/2015 hives Prednisone Unknown 05/01/2015 INSOMNIA Sulfa Drugs 04/08/2011 Medications * Be aware that medications may not be up to date on this document. Alwaysverify current medications with the patient. dextromethorphan -guaifenesin ER 12hr (MUCINEX DM) 30-600 MG tablet Take 1 Tab by mouth 2 times daily Active cetirizine (ZYRTEC) 10 MG chew tablet Take 10 mg by mouth once daily Active levonorgestrel-e thinyl estradiol (ALESSE; LEVLITE; AVIANE; LUTERA; LESSINA; SRONYX) 0.1-20 MG-MCG tablet Take 1 Tab by mouth once daily Active naproxen-esomepr azole EC (VIMOVO) 500-20 MG tablet Take 1 Tab by mouth 2 times daily,before breakfast and supper Active diclofenac (FLECTOR) 1.3 % patch Apply 1 Patch to skin 2 times daily Active mometasone (NASONEX) 50 MCG/ACT nasal spray [place] 1 [place] into each nostril 2 times daily Active naratriptan (AMERGE) 2.5 MG tablet Take 2.5 mg by mouth once as needed for Migraine Active metoprolol succinate XL 24hr (TOPROL XL) 50 MG tablet Take 50 mg by mouth once daily Active clonazePAM (KLONOPIN) 0.5 MG tablet Take 0.5 mg by mouth 2 times daily Active acyclovir (ZOVIRAX) 400 MG tablet Take 400 mg by mouth 3 times daily Active tiZANidine (ZANAFLEX) 4 MG tablet Take 4 mg by mouth every 8 hours as needed for Muscle Spasms Active hydrocodone-acet aminophen (NORCO) 10-325 MG tablet Take 1 Tab by mouth every 4 hours as needed for Pain Active dexlansoprazole (DEXILANT) 60 MG capsule 1 Cap once daily 30 Cap 3 5 Active ondansetron (ZOFRAN) 4 MG tabletIndication s:Nausea and vomiting, vomiting of unspecified type Take 1 Tab by mouth every 4 hours as needed for Nausea/Vomitin g 60 Tab 0 6 Active prochlorperazine (COMPAZINE) 10 MG tabletIndication s:Nausea without vomiting Take 1 Tab by mouth every 4 hours as needed for Nausea/Vomitin g 60 Tab 1 6 Active Active Problems No known active problems Social History Tobacco Use Types Packs/Day Years Used Date Smoking Tobacco: Former Cigarettes Q uit: 12/24/2011 Smokeless Tobacco: Never Alcohol Use Standard Drinks/Week Comments Yes 0 (1 standard drink = 0.6 oz pur e alcohol) occasional Comments No Sex and Gender Information Value Date Recorded Sex Assigned at Not on file Legal Sex Female 12:53 PM PHYSICAL INTEGRATION PRACTITIONER Gender Identity Not on file Sexual Orientation Not on file Last Filed Vital Signs Vital Sign Reading Time Taken Comments Blood Pressure 122/99 04/01/2015 2:44 PM PHYSICAL INTEGRATION PRACTITIONER Pulse 85 04/01/2015 2:44 PM PHYSICAL INTEGRATION PRACTITIONER Temperature 37.1 C (98.8 F) 04/01/2015 1:34 PM PHYSICAL INTEGRATION PRACTITIONER Respiratory Rate 14 04/01/2015 2:44 PM PHYSICAL INTEGRATION PRACTITIONER Oxygen Saturation 99% 04/01/2015 2:44 PM PHYSICAL INTEGRATION PRACTITIONER Inhaled Oxygen Concentration - - Weight 68 kg (150 lb) 04/01/2015 1:34 PM PHYSICAL INTEGRATION PRACTITIONER Height 160 cm (5' 3) 04/01/2015 1:34 PM PHYSICAL INTEGRATION PRACTITIONER Body Mass Index 26.57 04/01/2015 1:34 PM PHYSICAL INTEGRATION PRACTITIONER Plan of Treatment Health Maintenance Due Date Last Done Comments COLOGUARD (AGES 45-75) - COL ON CA SCREENING 1977 COLON MONITORING 1977 COLONOSCOPY - COLON CA SCREENING 1977 CT COLONOGRAPHY - COLON CA SCREENING 1977 Colorectal Cancer Screening 1977 FIT - COLON CA SCREENING 1977 FLEX SIG - COLON CA SCREENING 1977 LIPID TESTING 1977 MAMMOGRAM 1977 HIV SCREENING 1992 HEPATITIS C SCREENING 12/19/1995 DTAP/TDAP/TD VACCINES (1 - Tdap) 1996 HEPATITIS B VACCINE (1 of 3 - 19+ 3-dose series) 1996 COVID-19 VACCINE (1 - 2023-2 5 season) 2023 DEPRESSION SCREENING 04/11/2024 INFLUENZA VACCINE (Season Ended) 2024 ZOSTER VACCINE (1 of 2) 12/24/2027 HIB VACCINE Aged Out No longer eligi ble based on patient's age to complete this topic HPV VACCINE Aged Out No longer eligi ble based on patient's age to complete this topic MENINGOCOCCAL (Group B) VACC INE SHARED DECISION-MAKING Aged Out No longer eligibl e based on patient's age to complete this topic MENINGOCOCCAL GROUPS A/C/Y/W VACCINE Aged Out No longer eligible b ased on patient's age to complete this topic PNEUMOCOCCAL VACCINE Aged Out No long er eligible based on patient's age to complete this topic Insurance TERRY Care Teams Racing Secretary And Handicapper Relationship Specialty Start Date End Date Job Gold MD [address] [place] [phone] PCP - General 04/07/11
--- OUTSIDE RECORDS SUMMARY | 2024-10-16 02:19 | XMS_ITS | Clinical Summary ---
Author Organization [facility] Address [facility] [place] [address] Care Team Providers Care Animal Warden Name Role Phone Edilma Gold MD Primary Care Provider [phone] Social History Tobacco Use Types Packs/Day Years Used Date Smoking Tobacco: Never Assessed Comments Unknown Sex and Gender Information Value Date Recorded Sex Assigned at Not on file Legal Sex Female 12:11 PM CDT Gender Identity Not on file Sexual Orientation Not on file Plan of Treatment Health Maintenance Due Date Last Done Comments Cervical Cancer Screening Pap Smear (Age 30 to 64) Every 3 Years 1977 Colorectal Cancer Screening Colonoscopy (10 Years) 1977 Annual Physical 1980 Hepatitis C 12/24/1995 Hepatitis B Vaccines (1 of 3 - 19+ 3-dose series) 1996 Cervical Cancer Screening Pap with HPV Testing (Age 30 to 64) Every 5 Years 12/24/2007 Cervical Cancer Screening with HPV 12/24/2007 Mammogram Screening 2017 COVID-19 Vaccine ( season) 2023 05/20/2021, 05/17/2020, 04/19/2020 DTaP, Tdap and Td Vaccines (7 - Td or Tdap) 01/05/2026 01/06/2016, 10/30/1991, 09/22/1982, Additional history exists Meningococcal B Vaccine Aged Out No l onger eligible based on patient's age to complete this topic Meningococcal Vaccine Aged Out No omid meredith eligible based on patient's age to complete this topic Pneumococcal Vaccine: Pediatrics (0 to 5 Years) and At-Risk Patients (6 to 49 Years) Aged Out No longer eligible based on patient's age to complete this topic RSV Immunizations Under 20 Months Aged Out No longer eligible based on patient's age to complete this topic Insurance [facility] Care Teams Animal Warden Relationship Specialty Start Date End Date Edilma Gold MD [facility] [address] [address] PCP - General FAMILY PRACTICE 02/09/23
[2024-10-16 11:28] VITALS: BP 149/88; PULSE 104; RESP 18; TEMP 36.8; O2SAT 98
[2024-10-16 11:35] LABS: BEDSIDEPREGUCG Negative (Negative)
[2024-10-16] MEDS: LACTATED RINGERS 1,000 ML 150 ML IV CONT (11:42)
--- NOTE | 2024-10-16 12:04 | WPDANESEPPF ---
Anes - Initial Pre Proc Eval Procedure: Operation Date: 10/16/24 12:30 Proposed Procedures p Screening Colonoscopy - Trey Sutherland DO Date/Time: 10/16/24 12:04 Surgeon: Trey Sutherland DO Pre Op Diagnosis: Neoplasm screening Patient Data Age: 48 Gender: F Height: 1.63 m Weight: 67.8 kg Last Vital Signs Temp 98.2 F 10/16/24 11:28 Pulse 104 H 10/16/24 11:28 Resp 18 10/16/24 11:28 BP 149/88 H 10/16/24 11:28 Pulse Ox 98 10/16/24 11:28 O2 Del Method Room Air 10/16/24 11:28 Allergies Allergy/AdvReac Type Severity Reaction Status Date / Time bupropion Allergy Intermediate Seizure Verified 10/16/24 11:24 prednisone Allergy Unknown insomnia,ar Verified 10/16/24 11:24 thralgias pregabalin Allergy Unknown Hives Verified 10/16/24 11:24 Sulfa (Sulfonamide Allergy Unknown rash, Verified 10/16/24 11:24 Antibiotics) fevers tramadol Allergy Unknown seizure Verified 10/16/24 11:24 (also on wellbutrin at the time) clavulanic acid (From AdvReac Intermediate Nausea and Verified 10/16/24 11:24 Augmentin) Vomiting eszopiclone AdvReac Unknown Other Verified 10/16/24 11:24 Home Medications ?Medication ?Instructions ?Recorded ?Confirmed ?Type duloxetine 60 mg capsule,delayed 60 mg PO BID 09/21/19 10/16/24 History release (Cymbalta) buspirone 15 mg tablet 15 mg PO BID 02/06/20 10/16/24 History ramelteon 8 mg tablet (Rozerem) 8 mg PO HS 02/06/20 09/27/24 History tizanidine 4 mg tablet 4 mg PO TID PRN Muscle Spasm 02/06/20 09/27/24 History dextroamphetamine-amphetamine 30 30 mg PO DAILY 09/16/21 09/27/24 History mg tablet (Adderall) lamotrigine 100 mg tablet 100 mg PO BID 09/16/21 09/27/24 History (Lamictal) hydroxyzine HCl 25 mg tablet 25 mg PO PRN PRN Anxiety 08/25/22 09/27/24 History prazosin 2 mg capsule 4 mg PO QHS 04/21/23 09/27/24 History acyclovir 400 mg tablet See Rx Instructions .Route 08/15/23 09/27/24 Rx .COMPLEX #180 tabs oxycodone-acetaminophen 7.5 mg-325 1 tablet PO Q6H 09/22/23 10/16/24 History mg tablet hydrocodone 5 mg-acetaminophen 325 1 tablet PO Q4H PRN pain #30 tabs 11/28/23 09/14/24 Rx mg tablet omeprazole 20 mg capsule,delayed 20 mg PO DAILY #90 caps 07/17/24 09/27/24 Rx release Prempro 0.45 mg-1.5 mg tablet See Rx Instructions .Route 09/12/24 09/27/24 Rx (conj estrog-medroxyprogest olayinka) .COMPLEX #28 tabs tretinoin 0.05 % topical cream 1 applic topical QHS #45 grams 09/14/24 09/27/24 Rx spironolactone 50 mg tablet 50 mg PO DAILY #90 tabs 09/17/24 10/16/24 Rx celecoxib 200 mg capsule 200 mg PO DAILY #90 caps 10/08/24 Rx Laboratory Tests 10/16/24 11:26 POC Urine HCG, Qual Negative (Negative) Patient hx anesthesia problems: none Family hx anesthesia problems: none Results Review: All pre-operative results and documents have been reviewed as part of the pre-operative evaluation. [facility] Past Medical History Medical History Fracture of fifth toe, right, closed proximal phalanx Headache Anxiety FH: colon polyps grandfather FH: colon cancer aunt Papanicolaou smear of cervix with atypical squamous cells of undetermined significance (ASC-US) 2019 pap normal /hpv neg Surgical History Surgical History S/P arthroscopic partial medial meniscectomy H/O spinal fusion S/P trigger finger release (~05/01/19) Thumb Family History Family History Grandparent Cerebrovascular accident Family history of malignant neoplasm of breast Father Liver cancer Pancreatic cancer Mother Hyperlipemia Other Colon cancer Other Carcinoma of colon Social History Social History Smoking packs per day: 0.5 Smoking cigarettes per day: 10.0 Years smoked: 10 Smoking pack-years: 5.00 Smoking status: Current some day smoker Tobacco type: e-cigarettes/vaping Second hand tobacco smoke exposure: No Smoking end date: 04/11/10 Additional smoking assessment comments: SWITCHING TO VAPES 2013 Alcohol intake: never Substance use: current Substance use type: marijuana Do You Feel Safe in your Home?: Yes Lack of Transportation: No Lack of Food: Sometimes True Current Housing: I Have Housing Concerned About Future Housing: No Difficulty Paying Gas/Electric Bills: No Difficulty Paying for Meds: YES Currently Unemployed: No Education: Master's Degree or Higher Difficulty w/ Childcare or Family Care: No Living arrangements: with family 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 Pt vapes daily, migranes. Informed Consent: The patient's anesthetic plan and its attendant risks and benefits were discussed with the patient/family/POA. Questions were solicited and answers provided to the satisfaction of the patient/family/POA.
--- NOTE | 2024-10-16 12:42 | PM.IMHP ---
H&P: HPI History of Present Illness Date/Time: 10/16/24 12:42 Chief Complaint: Screening for colorectal cancer Narrative: 48 yo woman presents for colonoscopy. She denies any hematochezia or melena. She does not have 1st degree fam hx colon cancer but has an aunt and grandfather who had colon cancer. Review of Systems Review of Systems: All systems reviewed & are unremarkable except as noted in HPI and below Constitutional: Constitutional: Denies chills, Denies fever(s), Denies headache(s) and Denies weight loss Eyes: Eyes: Denies change in vision ENT: Denies dizziness, Denies headache(s), Denies neck mass and Denies throat swelling Cardiovascular: Cardiovascular: Denies chest pain, Denies lightheadedness and Denies dyspnea Respiratory: Respiratory: Denies cough, Denies dyspnea and Denies wheezing Gastrointestinal: Gastrointestinal: Denies abdominal pain, Denies change in bowel habits, Denies nausea and Denies vomiting Genitourinary: Genitourinary: Denies hematuria and Denies dysuria Musculoskeletal: Musculoskeletal: Reports as per HPI Integumentary/Breasts: Skin/Breast: Reports as per HPI Neurologic: Denies dizziness and Denies headache(s) Allergic/Immunologic: Allergic/Immunologic: Denies throat swelling and Denies wheezing [facility] Past Medical History Medical History Fracture of fifth toe, right, closed proximal phalanx Headache Anxiety FH: colon polyps grandfather FH: colon cancer aunt Papanicolaou smear of cervix with atypical squamous cells of undetermined significance (ASC-US) 2019 pap normal /hpv neg Surgical History Surgical History S/P arthroscopic partial medial meniscectomy H/O spinal fusion S/P trigger finger release (~05/01/19) Thumb Family History Family History Grandparent Cerebrovascular accident Family history of malignant neoplasm of breast Father Liver cancer Pancreatic cancer Mother Hyperlipemia Other Colon cancer Other Carcinoma of colon Social History Social History Smoking packs per day: 0.5 Smoking cigarettes per day: 10.0 Years smoked: 10 Smoking pack-years: 5.00 Smoking status: Current some day smoker Tobacco type: e-cigarettes/vaping Second hand tobacco smoke exposure: No Smoking end date: 04/11/10 Additional smoking assessment comments: SWITCHING TO VAPES 2013 Alcohol intake: never Substance use: current Substance use type: marijuana Do You Feel Safe in your Home?: Yes Lack of Transportation: No Lack of Food: Sometimes True Current Housing: I Have Housing Concerned About Future Housing: No Difficulty Paying Gas/Electric Bills: No Difficulty Paying for Meds: YES Currently Unemployed: No Education: Master's Degree or Higher Difficulty w/ Childcare or Family Care: No Living arrangements: with family 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 Gender identity (if verbalized by the patient): Female Spiritual care concerns: No Meds Home Medications and Allergies Home Medications ?Medication ?Instructions ?Recorded ?Confirmed ?Type duloxetine 60 mg capsule,delayed 60 mg PO BID 09/21/19 10/16/24 History release (Cymbalta) buspirone 15 mg tablet 15 mg PO BID 02/06/20 10/16/24 History ramelteon 8 mg tablet (Rozerem) 8 mg PO HS 02/06/20 09/27/24 History tizanidine 4 mg tablet 4 mg PO TID PRN Muscle Spasm 02/06/20 09/27/24 History dextroamphetamine-amphetamine 30 30 mg PO DAILY 09/16/21 09/27/24 History mg tablet (Adderall) lamotrigine 100 mg tablet 100 mg PO BID 09/16/21 09/27/24 History (Lamictal) hydroxyzine HCl 25 mg tablet 25 mg PO PRN PRN Anxiety 08/25/22 09/27/24 History prazosin 2 mg capsule 4 mg PO QHS 04/21/23 09/27/24 History acyclovir 400 mg tablet See Rx Instructions .Route 08/15/23 09/27/24 Rx .COMPLEX #180 tabs oxycodone-acetaminophen 7.5 mg-325 1 tablet PO Q6H 09/22/23 10/16/24 History mg tablet hydrocodone 5 mg-acetaminophen 325 1 tablet PO Q4H PRN pain #30 tabs 11/28/23 09/14/24 Rx mg tablet omeprazole 20 mg capsule,delayed 20 mg PO DAILY #90 caps 07/17/24 09/27/24 Rx release Prempro 0.45 mg-1.5 mg tablet See Rx Instructions .Route 09/12/24 09/27/24 Rx (conj estrog-medroxyprogest olayinka) .COMPLEX #28 tabs tretinoin 0.05 % topical cream 1 applic topical QHS #45 grams 09/14/24 09/27/24 Rx spironolactone 50 mg tablet 50 mg PO DAILY #90 tabs 09/17/24 10/16/24 Rx celecoxib 200 mg capsule 200 mg PO DAILY #90 caps 10/08/24 Rx Allergies Allergy/AdvReac Type Severity Reaction Status Date / Time bupropion Allergy Intermediate Seizure Verified 10/16/24 11:24 prednisone Allergy Unknown insomnia,ar Verified 10/16/24 11:24 thralgias pregabalin Allergy Unknown Hives Verified 10/16/24 11:24 Sulfa (Sulfonamide Allergy Unknown rash, Verified 10/16/24 11:24 Antibiotics) fevers tramadol Allergy Unknown seizure Verified 10/16/24 11:24 (also on wellbutrin at the time) clavulanic acid (From AdvReac Intermediate Nausea and Verified 10/16/24 11:24 Augmentin) Vomiting eszopiclone AdvReac Unknown Other Verified 10/16/24 11:24 Vital Signs Vital Signs - 24 hr 10/16/24 11:28 Temperature 98.2 F Pulse Rate 104 H Respiratory Rate 18 Blood Pressure 149/88 H Pulse Oximetry 98 Oxygen Delivery Room Air Exam Const: General: no acute distress and alert Orientation/consciousness: patient oriented x3 HENMT: Head: normocephalic and atraumatic Ears: hearing grossly normal bilaterally Face/Nose/Sinus: Normal nares present Mouth: Yes Normal oral and palatal mucosa present Eyes: Periorbital: periorbital findings normal Sclera: sclerae normal EOM: EOMs intact bilaterally Neck: Neck: normal visual inspection, no lymphadenopathy and trachea midline Chest: Chest palpation & inspection: normal inspection of the chest Resp: Effort & Inspection: normal respiratory effort Auscultation: clear to auscultation bilaterally Cardio: Jugular venous distension: no JVD Rate: regular rate Rhythm: regular rhythm Heart sounds: S1 normal heart sound present and S2 normal heart sound present Peripheral pulses: Peripheral pulses 2+ throughout GI: Inspection: normal to inspection GI Palp: Yes Soft to palpation, No Tenderness to palpation present (GI), No Guarding due to palpation present (GI) and No Rebound tenderness present Percussion: Yes normal to percussion Auscultation: normal bowel sounds : General: Yes no CVA tenderness Back/Spine/Pelvis: Back: no CVA tenderness Neuro: General: patient oriented x3, no focal motor deficits and CN's II-XI intact bilaterally Cognition (Neuro): normal cognition Speech: normal speech Motor exam (neuro): 5/5 motor strength present throughout Extrem: General: capillary refill normal and no clubbing, cyanosis or edema Assessment and Plan Assessment and plan (1) Screening for colon cancer: Code(s): Z12.11 - Encounter for screening for malignant neoplasm of colon Status: Acute Assessment and Plan: I have recommended colonoscopy. I have discussed the procedure, risks, benefits, and alternatives. Questions were answered. Patient is agreeable to proceed.
--- NOTE | 2024-10-16 13:26 | S_PTH ---
PATIENT: Yvette Ware LOC: [facility] U#:[id number] AGE/SX: 48/F ROOM: RE10/16/[address]: Trey Sutherland DO : 1975 BED: DIS: 10/16/2024 SPEC #: [id number] RECD: 10/16/24 14:16 STATUS: FABIO RE #: [id number] SILAS: 10/16/24 13:[address]: Trey Sutherland DEPT: [facility] Surgical RECD BY: Deb Davis ENTERED: 10/16/24 14:16 SP TYPE: Surgical OTHR DR: Edilma Gold MD Tissues: A - Rectal Polyp Procedures: Hematoxylin and Eosin Stain Gross and Microscopic Level 4
[2024-10-16 13:27] VITALS: BP 95/60; PULSE 75; RESP 16; O2SAT 100
[2024-10-16 13:37] VITALS: BP 97/61; PULSE 70; RESP 15; O2SAT 98
[2024-10-16 13:47] VITALS: BP 112/59; PULSE 65; RESP 16; O2SAT 99
== END 2024-10-16 13:55 | disposition home or self-care (01) ==
PROVIDERS: Anesthesiology; PCP Family Medicine; Visit Provider Surgery
PROC: 0DJD8ZZ Inspection of Lower Intestinal Tract, Via Natural or Artificial Opening Endoscopic (ICD-10-PCS; CPT 45378; principal; 2024-10-16 12:30)
DX: Z12.11 Encounter for screening for malignant neoplasm of colon (principal); D12.8 Benign neoplasm of rectum; F41.9 Anxiety disorder, unspecified; F17.290 Nicotine dependence, other tobacco product, uncomplicated; F12.90 Cannabis use, unspecified, uncomplicated; Z79.1 Long term (current) use of non-steroidal anti-inflammatories (NSAID); Z79.891 Long term (current) use of opiate analgesic; Z98.890 Other specified postprocedural states; Z98.1 Arthrodesis status; Z83.719 Family history of colon polyps, unspecified; Z80.3 Family history of malignant neoplasm of breast; Z80.0 Family history of malignant neoplasm of digestive organs
CPT/HCPCS: 45380; 88305; J2003; J2704; J7120

== ENCOUNTER 2024-10-24 10:12 | Outpatient (CLI) | payer BC, SELFPAY ==
--- OUTSIDE RECORDS SUMMARY | 2024-10-24 10:27 | XMS_ITS | Patient Health Record ---
Author Organization [facility] As eventblimp [facility] Address [address] [facility] [address] [place] [address] Care Team Providers Care Head Chopper Name Role Phone JESSICA BAUMANN, KAROLINE Primary Care Provider Unaaltagracia doris Alvarez Edmundo Unavailable [phone] Allergies Allergen (clinical drug ingredient) Drug/Non Drug Allergy documented on EMR Reaction Allergy Type Onset Date Status amoxicillin / clavulanate Augmentin Unknown Drug Allergy 08/02/2023 Active pregabalin Lyrica Unknown Drug Allergy 08/02/2023 Activ e predniSONE Unknown Drug Allergy 08/02/2023 Activ e Sulfathiazole Unknown Drug Allergy 08/02/2023 Ac tive tramadol traMADol HCl Unknown Drug Allergy 08/02/2023 Act angie Wellbutrin Unknown Drug Allergy 08/02/2023 Activ e Results Component Value Reference Range Notes UDT Reviewed date:04/05/2024 01:58:14 PM Interpretation: Performing Lab: Notes/Report: THC POS 0 - 50 ng/ml Cocaine NEG 0 - 300 ng/ml Amphetamine POS 0 - 1000 ng/ml Buprenorphine (BUP) NEG 0 - 10 ng/ml Secobarbital (Bar) NEG 0 - 300 ng/ml Oxazepam (BZO) NEG 0 - 300 ng/ml 5-dkkwebfzqq-3,4-gsbuihja-4, 3-dipheny lpyrrolidine (EDDP) NEG 0 - 300 ng/ml Methamphetamine (MET) NEG 0 - 1000 ng/ml Methylenedioxymethamphetamine (MDMA) NEG 0 - 500 ng/ml Morphine (MOP 300/[id number]) NEG 0 - 300 ng/ml Methadone (MTD) NEG 0 - 300 ng/ml Phencyclidine (PCP) NEG 0 - 25 ng/ml Nortriptyline (TCA) NEG 0 - 1000 ng/ml Oxycodone POS 0 - 300 ng/ml x NEG 0 - 300 ng/ml DRUG MONITOR, NALTREXONE, QN , URIN ([id number]) Reviewed date:04/23/2024 12:39:02 PM Interpretation: Performing Lab:AT, [id number] [id number] [id number] Doe, Director - [address] [facility] Notes/Report: FASTING: NO Naltrexone TNP TEST NOT PERFORMED The specimen was sent to a [facility] reference/esoteric laboratory, but we are unable to locate for testing. Notes and Comments This drug testing is for medical treatment only. Analysis was performed as non-forensic testing and these results should be used only by healthcare providers to render diagnosis or treatment, or to monitor progress of medical conditions. Amphetamines Notes: Amphetamine detected is consistent with the use of the drug Amphetamine. Amphetamine can be a prescribed drug and is also a metabolite of methamphetamine. Marijuana Notes: Marijuana Metabolite detected is consistent with exposure to Marijuana (THC) and/or hemp derived products. Some jurisdictions do not include hemp within the definition of Marijuana. LDT Notes: Confirmation tests were developed and their analytical performance characteristics have been determined by [facility]. It has not been cleared or approved by the FDA. This assay has been validated pursuant to the CLIA regulations and is used for clinical purposes. Healthcare Providers needing Interpretation assistance, please contact us at [phone] ( ) M-F, 8am to 10pm EST DRUG MONITOR, MARIJUANA META B, QN, URINE ([id number]) Reviewed date:04/23/2024 12:39:02 PM Interpretation: Performing Lab:[facility], [facility] [address] [place] [place] Notes/Report: FASTING: NO Marijuana Metabolite >5000 <5 ng/mL Marijuana Comments See Stella gonzalez Notes, LDT Notes DRUG MONITOR,AMPHETAMINE, W/ DL, QN URINE ([id number]) Reviewed date:04/23/2024 12:39:01 PM Interpretation: Performing Lab:[facility] [address] [facility], [address] [id number] [place] Notes/Report: FASTING: NO Amphetamine 5669 <250 ng/mL Methamphetamine NEGATIVE <250 ng/mL Amphetamines Comments See Am phetamines Notes, LDT Notes UDT Reviewed date:09/27/2024 09:54:52 AM Interpretation: Performing Lab: Notes/Report: THC P 0 - 50 ng/ml Cocaine N 0 - 300 ng/ml Amphetamine P 0 - 1000 ng/ml Buprenorphine (BUP) N 0 - 10 ng/ml Secobarbital (Bar) N 0 - 300 ng/ml Oxazepam (BZO) N 0 - 300 ng/ml 0-fqsmtpicdd-3,3-peunhixm-8, 3-dipheny lpyrrolidine (EDDP) N 0 - 300 ng/ml Methamphetamine (MET) N 0 - 1000 ng/ml Methylenedioxymethamphetamine (MDMA) N 0 - 500 ng/ml Morphine (MOP 300/[id number]) N 0 - 300 ng/ml Methadone (MTD) N 0 - 300 ng/ml Phencyclidine (PCP) N 0 - 25 ng/ml Nortriptyline (TCA) N 0 - 1000 ng/ml Oxycodone P 0 - 300 ng/ml Reason For Referral No Information Medications Medication SIG (Take, Route, Frequency, Duration) Notes Start Date End Date Status Amphetamine-Dextroamphe t ER 30 MG 1 capsule in the morning Oral Once a day; Duration: 30 days Active Omeprazole 20 MG Oral 08/02/2023 Ac tive Naratriptan HCl 2.5 MG Oral 08/02/2023 Active DULoxetine HCl 60 MG 2 capsules Oral Once a day; Duration: 90 days Active oxyCODONE-Acetaminophen 7.5-325 MG Oral 08/02/2023 Active Acyclovir 400 MG Oral 08/02/2023 Ac tive CombiPatch 0.05-0.14 mg/24 hr Transdermal *Pick strength-form from [facility] for eRX* 08/02/2023 Active Senna 8.6 mg Oral 08/02/2023 Active tiZANidine HCl 4 MG Oral 08/02/2023 Active busPIRone HCl 15 MG 1 tablet Oral Twice a day; Duration: 90 days Active hydrOXYzine HCl 25 MG 1 tablet Oral three times a day; Duration: 30 days As needed Active Vienva 0.1-20 MG-MCG Oral 08/02/2023 Active Rozerem 8 MG 1 tablet at bedtime as needed Oral Once a day; Duration: 30 days Active Metoprolol Succinate ER 50 MG Oral 08/02/2023 Active lamoTRIgine 100 MG 1 tablet Oral twice a day; Duration: 30 days Active Naloxone HCl 4 MG/0.1ML Nasal 08/02/2023 Active DULoxetine HCl 60 MG 2 capsules Oral Once a day; Duration: 30 days Active Spironolactone 50 MG Oral 08/02/2023 Active Prazosin HCl 1 MG 4 capsules at bedtime Orally Once a day; Duration: 30 days take with 5mg capsule Active Prazosin HCl 5 MG 1 capsule at bedtime Orally Once a day; Duration: 30 days Active Immunizations Vaccine Route Administration Date Status Comme nts DTP Unknown 02/03/1978 Administered DTP Unknown 03/02/1978 Administered DTP Unknown 04/01/1978 Administered DTP Unknown 12/21/1979 Administered DTP Unknown 09/22/1982 Administered Influenza virus vaccine, quadrivalent (IIV4), split virus, 0.25 mL dosage Unknown 01/10/2018 Administered Influenza virus vaccine, quadrivalent (IIV4), split virus, 0.25 mL dosage Unknown 01/30/2019 Administered Influenza virus vaccine, quadrivalent (IIV4), split virus, 0.25 mL dosage Unknown 02/06/2020 Administered MMR Unknown 05/16/1979 Administered MMR Unknown 10/30/1991 Administered Moderna Covid-19 Vaccine 1st dose Unknown 04/19/2020 Ad ministered Moderna Covid-19 Vaccine 1st dose Unknown 05/17/2020 Ad ministered Moderna Covid-19 Vaccine 1st dose Unknown 05/20/2021 Ad ministered Novel [id number], preservative free Unknown 12/21/2017 Administered OPV Unknown 04/01/1978 Administered OPV Unknown 06/30/1978 Administered OPV Unknown 10/01/1978 Administered OPV Unknown 12/21/1979 Administered OPV Unknown 09/22/1982 Administered Td (adult), adsorbed Unknown 10/30/1991 Administered Tdap Unknown 01/06/2016 Administered Social History Tobacco Use: Social History Observation Description Date Details (start date - stop date) Former Smoker NA - NA Sex Assigned At : Social History Observation Description Sex Assigned At Female Tobacco Control (Standard) Question Answer Notes Tobacco use: Former smoker Problems Problem Type SNOMED Code ICD Code Onset Dates Problem Status W/U Status Risk Notes Problem Moderate recurrent major depression (16770093) Major depressive disorder, recurrent, moderate (F33.1) Active confirmed Problem Generalized anxiety disorder (46705567) Generalized anxiety disorder (F41.1) Active confirmed Problem Posttraumatic stress disorder (34559371) Post-traumatic stress disorder, chronic (F43.12) Active confirmed Problem Primary insomnia (9606837) Primary insomnia (F51.01) Active confirmed Problem Attention deficit hyperactivity disorder, combined type (80842676) Attention-deficit hyperactivity disorder, combined type (F90.2) Active confirmed Problem Insomnia (994174398) Insomnia, unspecified (G47.00) Active confirmed Problem Chronic fatigue syndrome (disorder) (56139253) Chronic fatigue, unspecified (R53.82) Active confirmed Problem Panic disorder (961031786) Panic disorder [episodic paroxysmal anxiety] without agoraphobia (F41.0) Active confirmed Vital Signs Heart Rate 106 /min 10/24/2024 Height-cm 162.56 cm 10/24/2024 Blood pressure diastolic 92 mm Hg 10/24/2024 Weight-kg 70.31 kg 10/24/2024 Height 64.00 in 10/24/2024 Blood pressure systolic 140 mm Hg 10/24/2024 Weight 155 lbs 10/24/2024 BMI 26.6 kg/m2 10/24/2024 Encounters Encounter Location Date Provider Diagnosis [facility] [address] [facility] [address] [address] 10/24/2024 Edmundo Alvarez Generalized anxiety disorder F41.1 ; Major depressive disorder, recurrent, moderate F33.1 ; Primary insomnia F51.01 ; Post-traumatic stress disorder, chronic F43.12 ; Chronic fatigue, unspecified R53.82 ; Panic disorder [episodic paroxysmal anxiety] without agoraphobia F41.0 ; Other shelter (current) drug therapy Z79.899 ; Attention-deficit hyperactivity disorder, combined type F90.2 ; Encounter for screening for cardiovascular disorders Z13.6 and Dietary counseling and surveillance Z71.3 [facility] [address] [address] 12/20/2023 Edmundo Alvarez Generalized anxiety disorder F41.1 ; Major depressive disorder, recurrent, moderate F33.1 ; Primary insomnia F51.01 ; Post-traumatic stress disorder, chronic F43.12 ; Chronic fatigue, unspecified R53.82 ; Panic disorder [episodic paroxysmal anxiety] without agoraphobia F41.0 ; Other joint terminal attack controller (current) drug therapy Z79.899 and Attention-deficit hyperactivity disorder, combined type F90.2 [facility] [employer] [address] [place] [id number] [facility] [address] [address] 03/06/2024 Edmundo Alvarez Generalized anxiety disorder F41.1 ; Major depressive disorder, recurrent, moderate F33.1 ; Primary insomnia F51.01 ; Post-traumatic stress disorder, chronic F43.12 ; Chronic fatigue, unspecified R53.82 ; Panic disorder [episodic paroxysmal anxiety] without agoraphobia F41.0 ; Other shelter (current) drug therapy Z79.899 and Attention-deficit hyperactivity disorder, combined type F90.2 [facility] [employer] [address] [place] [address] [facility] [address] [address] 04/05/2024 Edmundo Alvarez Generalized anxiety disorder F41.1 ; Major depressive disorder, recurrent, moderate F33.1 ; Primary insomnia F51.01 ; Post-traumatic stress disorder, chronic F43.12 ; Chronic fatigue, unspecified R53.82 ; Panic disorder [episodic paroxysmal anxiety] without agoraphobia F41.0 ; Other shelter (current) drug therapy Z79.899 and Attention-deficit hyperactivity disorder, combined type F90.2 [facility] [employer] [address] [address] 05/01/2024 Edmundo Alvarez Generalized anxiety disorder F41.1 ; Major depressive disorder, recurrent, moderate F33.1 ; Primary insomnia F51.01 ; Post-traumatic stress disorder, chronic F43.12 ; Chronic fatigue, unspecified R53.82 ; Panic disorder [episodic paroxysmal anxiety] without agoraphobia F41.0 ; Other joint terminal attack controller (current) drug therapy Z79.899 and Attention-deficit hyperactivity disorder, combined type F90.2 [facility] [employer] [address] [place] [address] [facility] [address] [facility] [address] [place] [address] 06/26/2024 Edmundo Alvarez Generalized anxiety disorder F41.1 ; Major depressive disorder, recurrent, moderate F33.1 ; Primary insomnia F51.01 ; Post-traumatic stress disorder, chronic F43.12 ; Chronic fatigue, unspecified R53.82 ; Panic disorder [episodic paroxysmal anxiety] without agoraphobia F41.0 ; Other joint terminal attack controller (current) drug therapy Z79.899 and Attention-deficit hyperactivity disorder, combined type F90.2 [facility] [employer] [address] [facility] [address] [place] [address] 07/24/2024 Edmundo Alvarez Generalized anxiety disorder F41.1 ; Major depressive disorder, recurrent, moderate F33.1 ; Primary insomnia F51.01 ; Post-traumatic stress disorder, chronic F43.12 ; Chronic fatigue, unspecified R53.82 ; Panic disorder [episodic paroxysmal anxiety] without agoraphobia F41.0 ; Other shelter (current) drug therapy Z79.899 and Attention-deficit hyperactivity disorder, combined type F90.2 [facility] [employer] [address] [address] 08/28/2024 Edmundo Goodena Encounter for screen ing for depression Z13.31 ; Encounter for screening for cardiovascular disorders Z13.6 ; Dietary counseling and surveillance Z71.3 ; Generalized anxiety disorder F41.1 ; Major depressive disorder, recurrent, moderate F33.1 ; Primary insomnia F51.01 ; Post-traumatic stress disorder, chronic F43.12 ; Chronic fatigue, unspecified R53.82 ; Panic disorder [episodic paroxysmal anxiety] without agoraphobia F41.0 ; Other shelter (current) drug therapy Z79.899 and Attention-deficit hyperactivity disorder, combined type F90.2 [facility] [employer] [address] [address] 09/26/2024 Edmundo Alvarez Encounter for screen ing for depression Z13.31 ; Encounter for screening for cardiovascular disorders Z13.6 ; Dietary counseling and surveillance Z71.3 ; Generalized anxiety disorder F41.1 ; Major depressive disorder, recurrent, moderate F33.1 ; Primary insomnia F51.01 ; Post-traumatic stress disorder, chronic F43.12 ; Chronic fatigue, unspecified R53.82 ; Panic disorder [episodic paroxysmal anxiety] without agoraphobia F41.0 ; Other shelter (current) drug therapy Z79.899 and Attention-deficit hyperactivity disorder, combined type F90.2 [facility], [facility] [address] [place] [address] 09/24/2024 Edmundo Alvarez Primary insomnia F51 .01 [facility] [address] [place] [address] 10/25/2023 Edmundo Alvarez Chronic fatigue, unspecified R53.82 [facility], [facility] [address] [place] [address] 11/24/2023 Edmundo Alvarez Chronic fatigue, unspecified R53.82 [facility], [facility] [address] [place] [address] 01/18/2024 Edmundo Alvarez [facility] [address] [place] [address] 01/24/2024 Edmundo Alvarez Chronic fatigue, unspecified R53.82 [facility] [address] [place] [address] 02/27/2024 Edmundo Alvarez Chronic fatigue, unspecified R53.82 [facility] [employer], [facility] [address] [place] [address] 03/26/2024 Edmundo Alvarez Chronic fatigue, unspecified R53.82 [facility] [address] [place] [address] 04/24/2024 Edmundo Alvarez Chronic fatigue, unspecified R53.82 [facility] [employer], [facility] [address] [place] [address] 05/28/2024 Edmundo Alvarez Chronic fatigue, unspecified R53.82 [facility] [employer], [facility] [address] [place] [address] 08/22/2024 Edmundo Alvarez Chronic fatigue, unspecified R53.82 [facility] [employer], [facility] [address] [place] [address] 09/19/2024 Edmundo Alvarez Chronic fatigue, unspecified R53.82 [facility] [employer], [facility] [address] [place] [address] 09/20/2024 Edmundo Alvarez Chronic fatigue, unspecified R53.82 [facility] [employer] [address] [place] [address] 10/08/2024 Edmundo Alvarez Chronic fatigue, unspecified R53.82 Assessments Encounter Date Diagnosis (ICD Code) Assessment Notes Treatment Notes Treatment Clinical Notes Section Notes 10/25/2023 Chronic fatigue, unspecified (ICD-10 - R53.82) 11/24/2023 Chronic fatigue, unspecified (ICD-10 - R53.82) 12/20/2023 Major depressive disorder, recurrent, moderate (ICD-10 - F33.1) lamotrigine 100mg bid, Duloxetine 60mg - 2 capsules daily she has medical cannabis- helps with sleep and pain 1. Depression: - Patient reports a decrease in depressive symptoms due to improved knee function and reduced pain. - Continue current medications: lamotrigine 200 mg twice a day and duloxetine 60 mg twice a day. Plan: - Reassess depression symptoms at the next visit. 2. Anxiety: - Patient experiences anxiety related to ongoing lawsuits and condo issues, but reports improvement since regaining mobility. - Continue buspirone 15 mg twice a day for anxiety management. Plan: - Encourage the patient to utilize stress-reductio n techniques and consider therapy if needed. 3. Sleep disturbances: - Patient reports improved sleep with the use of hydroxyzine and Rozerem. - Continue hydroxyzine as needed for sleep and Rozerem at bedtime. Plan: - Monitor sleep quality and adjust medications if necessary. 4. Nightmares and PTSD symptoms: - Patient reports persistent nightmares despite taking prazosin 4 mg at bedtime. Plan: - Increase prazosin dosage to 5 mg at bedtime to help reduce nightmare frequency and intensity. - Reevaluate the effectiveness of the increased prazosin dosage at the next visit. 5. ADHD and fatigue: - Patient reports successful management of ADHD symptoms and fatigue with Adderall XR. Plan: - Continue Adderall XR as prescribed and monitor for any changes in symptoms or side effects. Follow-up in 4-6 weeks to reassess the patient's progress, medication effectiveness, and address any new concerns. 12/20/2023 Generalized anxiety disorder (ICD-10 - F41.1) cont buspirone 15mg bid, hydroxyzine 25mg tid prn she has medical cannabis- helps with sleep and pain 1. Depression: - Patient reports a decrease in depressive symptoms due to improved knee function and reduced pain. - Continue current medications: lamotrigine 200 mg twice a day and duloxetine 60 mg twice a day. Plan: - Reassess depression symptoms at the next visit. 2. Anxiety: - Patient experiences anxiety related to ongoing lawsuits and condo issues, but reports improvement since regaining mobility. - Continue buspirone 15 mg twice a day for anxiety management. Plan: - Encourage the patient to utilize stress-reductio n techniques and consider therapy if needed. 3. Sleep disturbances: - Patient reports improved sleep with the use of hydroxyzine and Rozerem. - Continue hydroxyzine as needed for sleep and Rozerem at bedtime. Plan: - Monitor sleep quality and adjust medications if necessary. 4. Nightmares and PTSD symptoms: - Patient reports persistent nightmares despite taking prazosin 4 mg at bedtime. Plan: - Increase prazosin dosage to 5 mg at bedtime to help reduce nightmare frequency and intensity. - Reevaluate the effectiveness of the increased prazosin dosage at the next visit. 5. ADHD and fatigue: - Patient reports successful management of ADHD symptoms and fatigue with Adderall XR. Plan: - Continue Adderall XR as prescribed and monitor for any changes in symptoms or side effects. Follow-up in 4-6 weeks to reassess the patient's progress, medication effectiveness, and address any new concerns. 01/24/2024 Chronic fatigue, unspecified (ICD-10 - R53.82) 02/27/2024 Chronic fatigue, unspecified (ICD-10 - R53.82) 03/06/2024 Generalized anxiety disorder (ICD-10 - F41.1) cont buspirone 15mg bid, hydroxyzine 25mg tid prn she has medical cannabis- helps with sleep and pain 1. Depression: - Continue lamotrigine 100 mg twice a day - Continue duloxetine 60 mg twice a day Plan: - Reevaluate the possibility of Spravato treatment; have Gayla look into insurance coverage and assistance programs - Encourage the patient to explore clinical trials for alternative treatments (e.g., psilocybin, ketamine) through clinicaltrials. gov and the National [place] [employer] 2. Anxiety: - Continue buspirone 15 mg twice a day - Continue hydroxyzine 25 mg three times a day as needed Plan: - Maintain current medication regimen 3. Insomnia: - Continue Rozerem as prescribed Plan: - Maintain current medication regimen 4. PTSD and nightmares: - Continue prazosin 5 mg Plan: - Maintain current medication regimen 5. Chronic fatigue: - Continue Adderall XR 30 mg Plan: - Maintain current medication regimen 6. Medical cannabis use: Plan: - Continue as prescribed for sleep and pain management 8. Social and occupational stressors: Plan: - Encourage the patient to set boundaries and prioritize self-care - Consider discussing stress management techniques and coping strategies in future visits 03/26/2024 Chronic fatigue, unspecified (ICD-10 - R53.82) 04/05/2024 Generalized anxiety disorder (ICD-10 - F41.1) cont buspirone 15mg bid, hydroxyzine 25mg tid prn she has medical cannabis- helps with sleep and pain 1. Depression: - Patient reports an improvement in mood over the past month, partially attributed to the improvement in her mother's mental health. 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 Plan: - Continue current medication regimen, including BuSpar 15 mg twice a day. - Monitor patient's mood and stress levels during follow-up visits. 2. Anxiety: - Patient's mother has been dealing with agoraphobia and is improving. - The patient has been advocating for her mother to receive appropriate treatment. Plan: - Encourage patient to continue supporting her mother's mental health journey. - Maintain open communication about their mental health. 3. ADHD: - Patient is due for a refill of Adderall. Plan: - Refill Adderall prescription as needed. - Monitor patient's response to medication and any potential side effects during follow-up visits. 4. Spravato treatment: - Patient is a candidate for Spravato, but insurance has been denying coverage. Plan: - Contact insurance company to discuss coverage and potential alternatives. - Advocate for the patient's access to appropriate treatment options. 5. Legal issues: - Patient is dealing with ongoing legal issues related to her condo and a breach of contract/tort case. Plan: - Encourage patient to continue working with her molder floor to resolve these issues. - Monitor the impact of these stressors on her mental health during follow-up visits. Follow-up: - Schedule a follow-up appointment in one month to monitor the patient's mental health, medication regimen, and ongoing situational stressors. 04/24/2024 Chronic fatigue, unspecified (ICD-10 - R53.82) 05/01/2024 Generalized anxiety disorder (ICD-10 - F41.1) cont buspirone 15mg bid, hydroxyzine 25mg tid prn she has medical cannabis- helps with sleep and pain 05/28/2024 Chronic fatigue, unspecified (ICD-10 - R53.82) 06/26/2024 Generalized anxiety disorder (ICD-10 - F41.1) cont buspirone 15mg bid, hydroxyzine 25mg tid prn she has medical cannabis- helps with sleep and pain 07/24/2024 Generalized anxiety disorder (ICD-10 - F41.1) cont buspirone 15mg bid, hydroxyzine 25mg tid prn she has medical cannabis- helps with sleep and pain 08/22/2024 Chronic fatigue, unspecified (ICD-10 - R53.82) 09/19/2024 Chronic fatigue, unspecified (ICD-10 - R53.82) 09/20/2024 Chronic fatigue, unspecified (ICD-10 - R53.82) 09/24/2024 Primary insomnia (ICD-10 - F51.01) 08/28/2024 Encounter for screening for depression (ICD-10 - Z13.31) she has medica l cannabis- helps with sleep and pain 09/26/2024 Encounter for screening for depression (ICD-10 - Z13.31) she has medica l cannabis- helps with sleep and pain 10/08/2024 Chronic fatigue, unspecified (ICD-10 - R53.82) 10/24/2024 Major depressive disorder, recurrent, moderate (ICD-10 - F33.1) lamotrigine 100mg bid, Duloxetine 60mg - 2 capsules daily she has medical cannabis- helps with sleep and pain 10/24/2024 Generalized anxiety disorder (ICD-10 - F41.1) cont buspirone 15mg bid, hydroxyzine 25mg tid prn she has medical cannabis- helps with sleep and pain 09/26/2024 Encounter for screening for cardiovascular disorders (ICD-10 - Z13.6) she has medical cannabis- helps with sleep and pain 10/24/2024 Primary insomnia (ICD-10 - F51.01) rozerem 8mg hs she has medical cannabis- helps with sleep and pain 08/28/2024 Encounter for screening for cardiovascular disorders (ICD-10 - Z13.6) she has medical cannabis- helps with sleep and pain 07/24/2024 Major depressive disorder, recurrent, moderate (ICD-10 - F33.1) lamotrigine 100mg bid, Duloxetine 60mg - 2 capsules daily she has medical cannabis- helps with sleep and pain 06/26/2024 Major depressive disorder, recurrent, moderate (ICD-10 - F33.1) lamotrigine 100mg bid, Duloxetine 60mg - 2 capsules daily she has medical cannabis- helps with sleep and pain 05/01/2024 Major depressive disorder, recurrent, moderate (ICD-10 - F33.1) lamotrigine 100mg bid, Duloxetine 60mg - 2 capsules daily she has medical cannabis- helps with sleep and pain 04/05/2024 Major depressive disorder, recurrent, moderate (ICD-10 - F33.1) lamotrigine 100mg bid, Duloxetine 60mg - 2 capsules daily she has medical cannabis- helps with sleep and pain 1. Depression: - Patient reports an improvement in mood over the past month, partially attributed to the improvement in her mother's mental health. 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 Plan: - Continue current medication regimen, including BuSpar 15 mg twice a day. - Monitor patient's mood and stress levels during follow-up visits. 2. Anxiety: - Patient's mother has been dealing with agoraphobia and is improving. - The patient has been advocating for her mother to receive appropriate treatment. Plan: - Encourage patient to continue supporting her mother's mental health journey. - Maintain open communication about their mental health. 3. ADHD: - Patient is due for a refill of Adderall. Plan: - Refill Adderall prescription as needed. - Monitor patient's response to medication and any potential side effects during follow-up visits. 4. Spravato treatment: - Patient is a candidate for Spravato, but insurance has been denying coverage. Plan: - Contact insurance company to discuss coverage and potential alternatives. - Advocate for the patient's access to appropriate treatment options. 5. Legal issues: - Patient is dealing with ongoing legal issues related to her condo and a breach of contract/tort case. Plan: - Encourage patient to continue working with her molder floor to resolve these issues. - Monitor the impact of these stressors on her mental health during follow-up visits. Follow-up: - Schedule a follow-up appointment in one month to monitor the patient's mental health, medication regimen, and ongoing situational stressors. 03/06/2024 Major depressive disorder, recurrent, moderate (ICD-10 - F33.1) lamotrigine 100mg bid, Duloxetine 60mg - 2 capsules daily she has medical cannabis- helps with sleep and pain 1. Depression: - Continue lamotrigine 100 mg twice a day - Continue duloxetine 60 mg twice a day Plan: - Reevaluate the possibility of Spravato treatment; have Gayla look into insurance coverage and assistance programs - Encourage the patient to explore clinical trials for alternative treatments (e.g., psilocybin, ketamine) through [employer] and the [employer] [place] [employer] 2. Anxiety: - Continue buspirone 15 mg twice a day - Continue hydroxyzine 25 mg three times a day as needed Plan: - Maintain current medication regimen 3. Insomnia: - Continue Rozerem as prescribed Plan: - Maintain current medication regimen 4. PTSD and nightmares: - Continue prazosin 5 mg Plan: - Maintain current medication regimen 5. Chronic fatigue: - Continue Adderall XR 30 mg Plan: - Maintain current medication regimen 6. Medical cannabis use: Plan: - Continue as prescribed for sleep and pain management 8. Social and occupational stressors: Plan: - Encourage the patient to set boundaries and prioritize self-care - Consider discussing stress management techniques and coping strategies in future visits 12/20/2023 Primary insomnia (ICD-10 - F51.01) rozerem 8mg hs she has medical cannabis- helps with sleep and pain 1. Depression: - Patient reports a decrease in depressive symptoms due to improved knee function and reduced pain. - Continue current medications: lamotrigine 200 mg twice a day and duloxetine 60 mg twice a day. Plan: - Reassess depression symptoms at the next visit. 2. Anxiety: - Patient experiences anxiety related to ongoing lawsuits and condo issues, but reports improvement since regaining mobility. - Continue buspirone 15 mg twice a day for anxiety management. Plan: - Encourage the patient to utilize stress-reductio n techniques and consider therapy if needed. 3. Sleep disturbances: - Patient reports improved sleep with the use of hydroxyzine and Rozerem. - Continue hydroxyzine as needed for sleep and Rozerem at bedtime. Plan: - Monitor sleep quality and adjust medications if necessary. 4. Nightmares and PTSD symptoms: - Patient reports persistent nightmares despite taking prazosin 4 mg at bedtime. Plan: - Increase prazosin dosage to 5 mg at bedtime to help reduce nightmare frequency and intensity. - Reevaluate the effectiveness of the increased prazosin dosage at the next visit. 5. ADHD and fatigue: - Patient reports successful management of ADHD symptoms and fatigue with Adderall XR. Plan: - Continue Adderall XR as prescribed and monitor for any changes in symptoms or side effects. Follow-up in 4-6 weeks to reassess the patient's progress, medication effectiveness, and address any new concerns. 12/20/2023 Post-traumatic stress disorder, chronic (ICD-10 - F43.12) Prazosin 5mg at bedtime she has medical cannabis- helps with sleep and pain 1. Depression: - Patient reports a decrease in depressive symptoms due to improved knee function and reduced pain. - Continue current medications: lamotrigine 200 mg twice a day and duloxetine 60 mg twice a day. Plan: - Reassess depression symptoms at the next visit. 2. Anxiety: - Patient experiences anxiety related to ongoing lawsuits and condo issues, but reports improvement since regaining mobility. - Continue buspirone 15 mg twice a day for anxiety management. Plan: - Encourage the patient to utilize stress-reductio n techniques and consider therapy if needed. 3. Sleep disturbances: - Patient reports improved sleep with the use of hydroxyzine and Rozerem. - Continue hydroxyzine as needed for sleep and Rozerem at bedtime. Plan: - Monitor sleep quality and adjust medications if necessary. 4. Nightmares and PTSD symptoms: - Patient reports persistent nightmares despite taking prazosin 4 mg at bedtime. Plan: - Increase prazosin dosage to 5 mg at bedtime to help reduce nightmare frequency and intensity. - Reevaluate the effectiveness of the increased prazosin dosage at the next visit. 5. ADHD and fatigue: - Patient reports successful management of ADHD symptoms and fatigue with Adderall XR. Plan: - Continue Adderall XR as prescribed and monitor for any changes in symptoms or side effects. Follow-up in 4-6 weeks to reassess the patient's progress, medication effectiveness, and address any new concerns. 03/06/2024 Primary insomnia (ICD-10 - F51.01) rozerem 8mg hs she has medical cannabis- helps with sleep and pain 1. Depression: - Continue lamotrigine 100 mg twice a day - Continue duloxetine 60 mg twice a day Plan: - Reevaluate the possibility of Spravato treatment; have Gayla look into insurance coverage and assistance programs - Encourage the patient to explore clinical trials for alternative treatments (e.g., psilocybin, ketamine) through [employer] and the [employer] [place] [facility] 2. Anxiety: - Continue buspirone 15 mg twice a day - Continue hydroxyzine 25 mg three times a day as needed Plan: - Maintain current medication regimen 3. Insomnia: - Continue Rozerem as prescribed Plan: - Maintain current medication regimen 4. PTSD and nightmares: - Continue prazosin 5 mg Plan: - Maintain current medication regimen 5. Chronic fatigue: - Continue Adderall XR 30 mg Plan: - Maintain current medication regimen 6. Medical cannabis use: Plan: - Continue as prescribed for sleep and pain management 8. Social and occupational stressors: Plan: - Encourage the patient to set boundaries and prioritize self-care - Consider discussing stress management techniques and coping strategies in future visits 04/05/2024 Primary insomnia (ICD-10 - F51.01) rozerem 8mg hs she has medical cannabis- helps with sleep and pain 1. Depression: - Patient reports an improvement in mood over the past month, partially attributed to the improvement in her mother's mental health. 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 Plan: - Continue current medication regimen, including BuSpar 15 mg twice a day. - Monitor patient's mood and stress levels during follow-up visits. 2. Anxiety: - Patient's mother has been dealing with agoraphobia and is improving. - The patient has been advocating for her mother to receive appropriate treatment. Plan: - Encourage patient to continue supporting her mother's mental health journey. - Maintain open communication about their mental health. 3. ADHD: - Patient is due for a refill of Adderall. Plan: - Refill Adderall prescription as needed. - Monitor patient's response to medication and any potential side effects during follow-up visits. 4. Spravato treatment: - Patient is a candidate for Spravato, but insurance has been denying coverage. Plan: - Contact insurance company to discuss coverage and potential alternatives. - Advocate for the patient's access to appropriate treatment options. 5. Legal issues: - Patient is dealing with ongoing legal issues related to her condo and a breach of contract/tort case. Plan: - Encourage patient to continue working with her molder floor to resolve these issues. - Monitor the impact of these stressors on her mental health during follow-up visits. Follow-up: - Schedule a follow-up appointment in one month to monitor the patient's mental health, medication regimen, and ongoing situational stressors. 05/01/2024 Primary insomnia (ICD-10 - F51.01) rozerem 8mg hs she has medical cannabis- helps with sleep and pain 06/26/2024 Primary insomnia (ICD-10 - F51.01) rozerem 8mg hs she has medical cannabis- helps with sleep and pain 07/24/2024 Primary insomnia (ICD-10 - F51.01) rozerem 8mg hs she has medical cannabis- helps with sleep and pain 08/28/2024 Dietary counseling and surveillance (ICD-10 - Z71.3) she has medical cannabis- helps with sleep and pain 09/26/2024 Dietary counseling and surveillance (ICD-10 - Z71.3) she has medical cannabis- helps with sleep and pain 10/24/2024 Post-traumatic stress disorder, chronic (ICD-10 - F43.12) Prazosin 5mg at bedtime she has medical cannabis- helps with sleep and pain 10/24/2024 Chronic fatigue, unspecified (ICD-10 - R53.82) adderall xr 30mg daily she has medical cannabis- helps with sleep and pain 09/26/2024 Generalized anxiety disorder (ICD-10 - F41.1) cont buspirone 15mg bid, hydroxyzine 25mg tid prn she has medical cannabis- helps with sleep and pain 07/24/2024 Post-traumatic stress disorder, chronic (ICD-10 - F43.12) Prazosin 5mg at bedtime she has medical cannabis- helps with sleep and pain 08/28/2024 Generalized anxiety disorder (ICD-10 - F41.1) cont buspirone 15mg bid, hydroxyzine 25mg tid prn she has medical cannabis- helps with sleep and pain 06/26/2024 Post-traumatic stress disorder, chronic (ICD-10 - F43.12) Prazosin 5mg at bedtime she has medical cannabis- helps with sleep and pain 05/01/2024 Post-traumatic stress disorder, chronic (ICD-10 - F43.12) Prazosin 5mg at bedtime she has medical cannabis- helps with sleep and pain 04/05/2024 Post-traumatic stress disorder, chronic (ICD-10 - F43.12) Prazosin 5mg at bedtime she has medical cannabis- helps with sleep and pain 1. Depression: - Patient reports an improvement in mood over the past month, partially attributed to the improvement in her mother's mental health. 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 Plan: - Continue current medication regimen, including BuSpar 15 mg twice a day. - Monitor patient's mood and stress levels during follow-up visits. 2. Anxiety: - Patient's mother has been dealing with agoraphobia and is improving. - The patient has been advocating for her mother to receive appropriate treatment. Plan: - Encourage patient to continue supporting her mother's mental health journey. - Maintain open communication about their mental health. 3. ADHD: - Patient is due for a refill of Adderall. Plan: - Refill Adderall prescription as needed. - Monitor patient's response to medication and any potential side effects during follow-up visits. 4. Spravato treatment: - Patient is a candidate for Spravato, but insurance has been denying coverage. Plan: - Contact insurance company to discuss coverage and potential alternatives. - Advocate for the patient's access to appropriate treatment options. 5. Legal issues: - Patient is dealing with ongoing legal issues related to her condo and a breach of contract/tort case. Plan: - Encourage patient to continue working with her molder floor to resolve these issues. - Monitor the impact of these stressors on her mental health during follow-up visits. Follow-up: - Schedule a follow-up appointment in one month to monitor the patient's mental health, medication regimen, and ongoing situational stressors. 03/06/2024 Post-traumatic stress disorder, chronic (ICD-10 - F43.12) Prazosin 5mg at bedtime she has medical cannabis- helps with sleep and pain 1. Depression: - Continue lamotrigine 100 mg twice a day - Continue duloxetine 60 mg twice a day Plan: - Reevaluate the possibility of Spravato treatment; have Gayla look into insurance coverage and assistance programs - Encourage the patient to explore clinical trials for alternative treatments (e.g., psilocybin, ketamine) through [employer] and the [employer] [place] [facility] [employer] [facility] 2. Anxiety: - Continue buspirone 15 mg twice a day - Continue hydroxyzine 25 mg three times a day as needed Plan: - Maintain current medication regimen 3. Insomnia: - Continue Rozerem as prescribed Plan: - Maintain current medication regimen 4. PTSD and nightmares: - Continue prazosin 5 mg Plan: - Maintain current medication regimen 5. Chronic fatigue: - Continue Adderall XR 30 mg Plan: - Maintain current medication regimen 6. Medical cannabis use: Plan: - Continue as prescribed for sleep and pain management 8. Social and occupational stressors: Plan: - Encourage the patient to set boundaries and prioritize self-care - Consider discussing stress management techniques and coping strategies in future visits 12/20/2023 Chronic fatigue, unspecified (ICD-10 - R53.82) adderall xr 30mg daily she has medical cannabis- helps with sleep and pain 1. Depression: - Patient reports a decrease in depressive symptoms due to improved knee function and reduced pain. - Continue current medications: lamotrigine 200 mg twice a day and duloxetine 60 mg twice a day. Plan: - Reassess depression symptoms at the next visit. 2. Anxiety: - Patient experiences anxiety related to ongoing lawsuits and condo issues, but reports improvement since regaining mobility. - Continue buspirone 15 mg twice a day for anxiety management. Plan: - Encourage the patient to utilize stress-reductio n techniques and consider therapy if needed. 3. Sleep disturbances: - Patient reports improved sleep with the use of hydroxyzine and Rozerem. - Continue hydroxyzine as needed for sleep and Rozerem at bedtime. Plan: - Monitor sleep quality and adjust medications if necessary. 4. Nightmares and PTSD symptoms: - Patient reports persistent nightmares despite taking prazosin 4 mg at bedtime. Plan: - Increase prazosin dosage to 5 mg at bedtime to help reduce nightmare frequency and intensity. - Reevaluate the effectiveness of the increased prazosin dosage at the next visit. 5. ADHD and fatigue: - Patient reports successful management of ADHD symptoms and fatigue with Adderall XR. Plan: - Continue Adderall XR as prescribed and monitor for any changes in symptoms or side effects. Follow-up in 4-6 weeks to reassess the patient's progress, medication effectiveness, and address any new concerns. 03/06/2024 Chronic fatigue, unspecified (ICD-10 - R53.82) adderall xr 30mg daily she has medical cannabis- helps with sleep and pain 1. Depression: - Continue lamotrigine 100 mg twice a day - Continue duloxetine 60 mg twice a day Plan: - Reevaluate the possibility of Spravato treatment; have Gayla look into insurance coverage and assistance programs - Encourage the patient to explore clinical trials for alternative treatments (e.g., psilocybin, ketamine) through [employer] and the [employer] [place] [facility] 2. Anxiety: - Continue buspirone 15 mg twice a day - Continue hydroxyzine 25 mg three times a day as needed Plan: - Maintain current medication regimen 3. Insomnia: - Continue Rozerem as prescribed Plan: - Maintain current medication regimen 4. PTSD and nightmares: - Continue prazosin 5 mg Plan: - Maintain current medication regimen 5. Chronic fatigue: - Continue Adderall XR 30 mg Plan: - Maintain current medication regimen 6. Medical cannabis use: Plan: - Continue as prescribed for sleep and pain management 8. Social and occupational stressors: Plan: - Encourage the patient to set boundaries and prioritize self-care - Consider discussing stress management techniques and coping strategies in future visits 04/05/2024 Chronic fatigue, unspecified (ICD-10 - R53.82) adderall xr 30mg daily she has medical cannabis- helps with sleep and pain 1. Depression: - Patient reports an improvement in mood over the past month, partially attributed to the improvement in her mother's mental health. 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 Plan: - Continue current medication regimen, including BuSpar 15 mg twice a day. - Monitor patient's mood and stress levels during follow-up visits. 2. Anxiety: - Patient's mother has been dealing with agoraphobia and is improving. - The patient has been advocating for her mother to receive appropriate treatment. Plan: - Encourage patient to continue supporting her mother's mental health journey. - Maintain open communication about their mental health. 3. ADHD: - Patient is due for a refill of Adderall. Plan: - Refill Adderall prescription as needed. - Monitor patient's response to medication and any potential side effects during follow-up visits. 4. Spravato treatment: - Patient is a candidate for Spravato, but insurance has been denying coverage. Plan: - Contact insurance company to discuss coverage and potential alternatives. - Advocate for the patient's access to appropriate treatment options. 5. Legal issues: - Patient is dealing with ongoing legal issues related to her condo and a breach of contract/tort case. Plan: - Encourage patient to continue working with her molder floor to resolve these issues. - Monitor the impact of these stressors on her mental health during follow-up visits. Follow-up: - Schedule a follow-up appointment in one month to monitor the patient's mental health, medication regimen, and ongoing situational stressors. 05/01/2024 Chronic fatigue, unspecified (ICD-10 - R53.82) adderall xr 30mg daily she has medical cannabis- helps with sleep and pain 08/28/2024 Major depressive disorder, recurrent, moderate (ICD-10 - F33.1) lamotrigine 100mg bid, Duloxetine 60mg - 2 capsules daily she has medical cannabis- helps with sleep and pain 07/24/2024 Chronic fatigue, unspecified (ICD-10 - R53.82) adderall xr 30mg daily she has medical cannabis- helps with sleep and pain 06/26/2024 Chronic fatigue, unspecified (ICD-10 - R53.82) adderall xr 30mg daily she has medical cannabis- helps with sleep and pain 09/26/2024 Major depressive disorder, recurrent, moderate (ICD-10 - F33.1) lamotrigine 100mg bid, Duloxetine 60mg - 2 capsules daily she has medical cannabis- helps with sleep and pain 10/24/2024 Panic disorder [episodic paroxysmal anxiety] without agoraphobia (ICD-10 - F41.0) she has medical cannabis- helps with sleep and pain 10/24/2024 Other joint terminal attack controller (current) drug therapy (ICD-10 - Z79.899) she has medical cannabis- helps with sleep and pain 08/28/2024 Primary insomnia (ICD-10 - F51.01) rozerem 8mg hs she has medical cannabis- helps with sleep and pain 09/26/2024 Primary insomnia (ICD-10 - F51.01) rozerem 8mg hs she has medical cannabis- helps with sleep and pain 05/01/2024 Panic disorder [episodic paroxysmal anxiety] without agoraphobia (ICD-10 - F41.0) she has medical cannabis- helps with sleep and pain 06/26/2024 Panic disorder [episodic paroxysmal anxiety] without agoraphobia (ICD-10 - F41.0) she has medical cannabis- helps with sleep and pain 07/24/2024 Panic disorder [episodic paroxysmal anxiety] without agoraphobia (ICD-10 - F41.0) she has medical cannabis- helps with sleep and pain 03/06/2024 Panic disorder [episodic paroxysmal anxiety] without agoraphobia (ICD-10 - F41.0) she has medical cannabis- helps with sleep and pain 1. Depression: - Continue lamotrigine 100 mg twice a day - Continue duloxetine 60 mg twice a day Plan: - Reevaluate the possibility of Spravato treatment; have Gayla look into insurance coverage and assistance programs - Encourage the patient to explore clinical trials for alternative treatments (e.g., psilocybin, ketamine) through [employer] and the [employer] [place] [facility] 2. Anxiety: - Continue buspirone 15 mg twice a day - Continue hydroxyzine 25 mg three times a day as needed Plan: - Maintain current medication regimen 3. Insomnia: - Continue Rozerem as prescribed Plan: - Maintain current medication regimen 4. PTSD and nightmares: - Continue prazosin 5 mg Plan: - Maintain current medication regimen 5. Chronic fatigue: - Continue Adderall XR 30 mg Plan: - Maintain current medication regimen 6. Medical cannabis use: Plan: - Continue as prescribed for sleep and pain management 8. Social and occupational stressors: Plan: - Encourage the patient to set boundaries and prioritize self-care - Consider discussing stress management techniques and coping strategies in future visits 04/05/2024 Panic disorder [episodic paroxysmal anxiety] without agoraphobia (ICD-10 - F41.0) she has medical cannabis- helps with sleep and pain 1. Depression: - Patient reports an improvement in mood over the past month, partially attributed to the improvement in her mother's mental health. 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 Plan: - Continue current medication regimen, including BuSpar 15 mg twice a day. - Monitor patient's mood and stress levels during follow-up visits. 2. Anxiety: - Patient's mother has been dealing with agoraphobia and is improving. - The patient has been advocating for her mother to receive appropriate treatment. Plan: - Encourage patient to continue supporting her mother's mental health journey. - Maintain open communication about their mental health. 3. ADHD: - Patient is due for a refill of Adderall. Plan: - Refill Adderall prescription as needed. - Monitor patient's response to medication and any potential side effects during follow-up visits. 4. Spravato treatment: - Patient is a candidate for Spravato, but insurance has been denying coverage. Plan: - Contact insurance company to discuss coverage and potential alternatives. - Advocate for the patient's access to appropriate treatment options. 5. Legal issues: - Patient is dealing with ongoing legal issues related to her condo and a breach of contract/tort case. Plan: - Encourage patient to continue working with her molder floor to resolve these issues. - Monitor the impact of these stressors on her mental health during follow-up visits. Follow-up: - Schedule a follow-up appointment in one month to monitor the patient's mental health, medication regimen, and ongoing situational stressors. 12/20/2023 Panic disorder [episodic paroxysmal anxiety] without agoraphobia (ICD-10 - F41.0) she has medical cannabis- helps with sleep and pain 1. Depression: - Patient reports a decrease in depressive symptoms due to improved knee function and reduced pain. - Continue current medications: lamotrigine 200 mg twice a day and duloxetine 60 mg twice a day. Plan: - Reassess depression symptoms at the next visit. 2. Anxiety: - Patient experiences anxiety related to ongoing lawsuits and condo issues, but reports improvement since regaining mobility. - Continue buspirone 15 mg twice a day for anxiety management. Plan: - Encourage the patient to utilize stress-reductio n techniques and consider therapy if needed. 3. Sleep disturbances: - Patient reports improved sleep with the use of hydroxyzine and Rozerem. - Continue hydroxyzine as needed for sleep and Rozerem at bedtime. Plan: - Monitor sleep quality and adjust medications if necessary. 4. Nightmares and PTSD symptoms: - Patient reports persistent nightmares despite taking prazosin 4 mg at bedtime. Plan: - Increase prazosin dosage to 5 mg at bedtime to help reduce nightmare frequency and intensity. - Reevaluate the effectiveness of the increased prazosin dosage at the next visit. 5. ADHD and fatigue: - Patient reports successful management of ADHD symptoms and fatigue with Adderall XR. Plan: - Continue Adderall XR as prescribed and monitor for any changes in symptoms or side effects. Follow-up in 4-6 weeks to reassess the patient's progress, medication effectiveness, and address any new concerns. 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 Depression: - Patient reports a decrease in depressive symptoms due to improved knee function and reduced pain. - Continue current medications: lamotrigine 200 mg twice a day and duloxetine 60 mg twice a day. Plan: - Reassess depression symptoms at the next visit. 2. Anxiety: - Patient experiences anxiety related to ongoing lawsuits and condo issues, but reports improvement since regaining mobility. - Continue buspirone 15 mg twice a day for anxiety management. Plan: - Encourage the patient to utilize stress-reductio n techniques and consider therapy if needed. 3. Sleep disturbances: - Patient reports improved sleep with the use of hydroxyzine and Rozerem. - Continue hydroxyzine as needed for sleep and Rozerem at bedtime. Plan: - Monitor sleep quality and adjust medications if necessary. 4. Nightmares and PTSD symptoms: - Patient reports persistent nightmares despite taking prazosin 4 mg at bedtime. Plan: - Increase prazosin dosage to 5 mg at bedtime to help reduce nightmare frequency and intensity. - Reevaluate the effectiveness of the increased prazosin dosage at the next visit. 5. ADHD and fatigue: - Patient reports successful management of ADHD symptoms and fatigue with Adderall XR. Plan: - Continue Adderall XR as prescribed and monitor for any changes in symptoms or side effects. Follow-up in 4-6 weeks to reassess the patient's progress, medication effectiveness, and address any new concerns. 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 Depression: - Patient reports an improvement in mood over the past month, partially attributed to the improvement in her mother's mental health. 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 Plan: - Continue current medication regimen, including BuSpar 15 mg twice a day. - Monitor patient's mood and stress levels during follow-up visits. 2. Anxiety: - Patient's mother has been dealing with agoraphobia and is improving. - The patient has been advocating for her mother to receive appropriate treatment. Plan: - Encourage patient to continue supporting her mother's mental health journey. - Maintain open communication about their mental health. 3. ADHD: - Patient is due for a refill of Adderall. Plan: - Refill Adderall prescription as needed. - Monitor patient's response to medication and any potential side effects during follow-up visits. 4. Spravato treatment: - Patient is a candidate for Spravato, but insurance has been denying coverage. Plan: - Contact insurance company to discuss coverage and potential alternatives. - Advocate for the patient's access to appropriate treatment options. 5. Legal issues: - Patient is dealing with ongoing legal issues related to her condo and a breach of contract/tort case. Plan: - Encourage patient to continue working with her molder floor to resolve these issues. - Monitor the impact of these stressors on her mental health during follow-up visits. Follow-up: - Schedule a follow-up appointment in one month to monitor the patient's mental health, medication regimen, and ongoing situational stressors. 03/06/2024 Other shelter (current) drug therapy (ICD-10 - Z79.899) she has medical cannabis- helps with sleep and pain 1. Depression: - Continue lamotrigine 100 mg twice a day - Continue duloxetine 60 mg twice a day Plan: - Reevaluate the possibility of Spravato treatment; have Gayla look into insurance coverage and assistance programs - Encourage the patient to explore clinical trials for alternative treatments (e.g., psilocybin, ketamine) through [employer] go[employer] and the [employer] [place] [employer] 2. Anxiety: - Continue buspirone 15 mg twice a day - Continue hydroxyzine 25 mg three times a day as needed Plan: - Maintain current medication regimen 3. Insomnia: - Continue Rozerem as prescribed Plan: - Maintain current medication regimen 4. PTSD and nightmares: - Continue prazosin 5 mg Plan: - Maintain current medication regimen 5. Chronic fatigue: - Continue Adderall XR 30 mg Plan: - Maintain current medication regimen 6. Medical cannabis use: Plan: - Continue as prescribed for sleep and pain management 8. 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 (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) drug therapy (ICD-10 - Z79.899) she has medical cannabis- helps with sleep and pain 09/26/2024 Post-traumatic stress disorder, chronic (ICD-10 - F43.12) Prazosin 5mg at bedtime she has medical cannabis- helps with sleep and pain 10/24/2024 Attention-deficit hyperactivity disorder, combined type (ICD-10 - F90.2) she has medical cannabis- helps with sleep and pain 08/28/2024 Chronic fatigue, unspecified (ICD-10 - R53.82) adderall xr 30mg daily she has medical cannabis- helps with sleep and pain 09/26/2024 Chronic fatigue, unspecified (ICD-10 - R53.82) adderall xr 30mg daily she has medical cannabis- helps with sleep and pain 07/24/2024 Attention-deficit hyperactivity disorder, combined type (ICD-10 - F90.2) she has medical cannabis- helps with sleep and pain 06/26/2024 Attention-deficit hyperactivity disorder, combined type (ICD-10 - F90.2) she has medical cannabis- helps with sleep and pain 05/01/2024 Attention-deficit hyperactivity disorder, combined type (ICD-10 - F90.2) she has medical cannabis- helps with sleep and pain 03/06/2024 Attention-deficit hyperactivity disorder, combined type (ICD-10 - F90.2) she has medical cannabis- helps with sleep and pain 1. Depression: - Continue lamotrigine 100 mg twice a day - Continue duloxetine 60 mg twice a day Plan: - Reevaluate the possibility of Spravato treatment; have Gayla look into insurance coverage and assistance programs - Encourage the patient to explore clinical trials for alternative treatments (e.g., psilocybin, ketamine) through [employer] and the [employer] [place] [employer] [facility] 2. Anxiety: - Continue buspirone 15 mg twice a day - Continue hydroxyzine 25 mg three times a day as needed Plan: - Maintain current medication regimen 3. Insomnia: - Continue Rozerem as prescribed Plan: - Maintain current medication regimen 4. PTSD and nightmares: - Continue prazosin 5 mg Plan: - Maintain current medication regimen 5. Chronic fatigue: - Continue Adderall XR 30 mg Plan: - Maintain current medication regimen 6. Medical cannabis use: Plan: - Continue as prescribed for sleep and pain management 8. Social and occupational stressors: Plan: - Encourage the patient to set boundaries and prioritize self-care - Consider discussing stress management techniques and coping strategies in future visits 04/05/2024 Attention-deficit hyperactivity disorder, combined type (ICD-10 - F90.2) she has medical cannabis- helps with sleep and pain 1. Depression: - Patient reports an improvement in mood over the past month, partially attributed to the improvement in her mother's mental health. 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 Plan: - Continue current medication regimen, including BuSpar 15 mg twice a day. - Monitor patient's mood and stress levels during follow-up visits. 2. Anxiety: - Patient's mother has been dealing with agoraphobia and is improving. - The patient has been advocating for her mother to receive appropriate treatment. Plan: - Encourage patient to continue supporting her mother's mental health journey. - Maintain open communication about their mental health. 3. ADHD: - Patient is due for a refill of Adderall. Plan: - Refill Adderall prescription as needed. - Monitor patient's response to medication and any potential side effects during follow-up visits. 4. Spravato treatment: - Patient is a candidate for Spravato, but insurance has been denying coverage. Plan: - Contact insurance company to discuss coverage and potential alternatives. - Advocate for the patient's access to appropriate treatment options. 5. Legal issues: - Patient is dealing with ongoing legal issues related to her condo and a breach of contract/tort case. Plan: - Encourage patient to continue working with her molder floor to resolve these issues. - Monitor the impact of these stressors on her mental health during follow-up visits. Follow-up: - Schedule a follow-up appointment in one month to monitor the patient's mental health, medication regimen, and ongoing situational stressors. 12/20/2023 Attention-deficit hyperactivity disorder, combined type (ICD-10 - F90.2) she has medical cannabis- helps with sleep and pain 1. Depression: - Patient reports a decrease in depressive symptoms due to improved knee function and reduced pain. - Continue current medications: lamotrigine 200 mg twice a day and duloxetine 60 mg twice a day. Plan: - Reassess depression symptoms at the next visit. 2. Anxiety: - Patient experiences anxiety related to ongoing lawsuits and condo issues, but reports improvement since regaining mobility. - Continue buspirone 15 mg twice a day for anxiety management. Plan: - Encourage the patient to utilize stress-reductio n techniques and consider therapy if needed. 3. Sleep disturbances: - Patient reports improved sleep with the use of hydroxyzine and Rozerem. - Continue hydroxyzine as needed for sleep and Rozerem at bedtime. Plan: - Monitor sleep quality and adjust medications if necessary. 4. Nightmares and PTSD symptoms: - Patient reports persistent nightmares despite taking prazosin 4 mg at bedtime. Plan: - Increase prazosin dosage to 5 mg at bedtime to help reduce nightmare frequency and intensity. - Reevaluate the effectiveness of the increased prazosin dosage at the next visit. 5. ADHD and fatigue: - Patient reports successful management of ADHD symptoms and fatigue with Adderall XR. Plan: - Continue Adderall XR as prescribed and monitor for any changes in symptoms or side effects. Follow-up in 4-6 weeks to reassess the patient's progress, medication effectiveness, and address any new concerns. 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 (current) drug therapy (ICD-10 - Z79.899) she has medical cannabis- helps with sleep and pain 10/24/2024 Dietary counseling and surveillance (ICD-10 - Z71.3) she has medical cannabis- helps with sleep and pain 08/28/2024 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 Depression: - Patient reports improvement in depressive symptoms but continues to experience mood fluctuations due to ongoing stressors (selling property, lawsuits, financial issues). - Currently on Lamotrigine 100 mg twice a day, Duloxetine 60 mg twice a day. Plan: - Continue current medication regimen. - Monitor patient's progress and consider adjustments to the treatment plan as needed. 2. Anxiety: - Patient experiences anxiety, which they channel into organizing and moving items. - Currently on Buspirone 15 mg twice a day, Hydroxyzine 25 mg three times a day as needed. Plan: - Continue current medication regimen. - Encourage the patient to explore additional coping strategies, such as relaxation techniques or therapy. 3. Insomnia: - Patient reports improvement in sleep quality with Rozerem, but nightmares persist. - Currently on Rozerem 8 mg for sleep. Plan: - Continue current medication regimen. - Monitor patient's progress and consider adjustments to the treatment plan as needed. 4. Nightmares: - Patient experiences vivid, unrelated nightmares. - Currently on Prazosin (partial refill remaining). Plan: - Continue Prazosin and monitor for improvement. - Reassess the need for adjustments to the treatment plan as the patient's overall mental health improves. 5. Fatigue and focus: - Patient reports Adderall XR 30 mg helps with focusing. Plan: - Continue Adderall XR 30 mg for fatigue and focus. - Monitor patient's progress and consider adjustments to the treatment plan as needed. Follow-up: - Schedule a follow-up appointment in 1-2 months to monitor the patient's progress and reassess the treatment plan as needed. she has medical cannabis- helps with sleep and pain 06/26/2024 Other 1. 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 - Current PHQ-9 score is 16, indicating moderately severe depression. - Symptoms include sleep disturbances, low energy, anhedonia, poor concentration, and occasional passive suicidal ideation without active intent. - Multiple medication trials over the past 20+ years have failed to provide adequate symptom relief. - Recent insurance denial for Spravato (esketamine) treatment. Plan: - Resubmit appeal for Spravato treatment with updated PHQ-9 score (16) and clarification of no current substance use disorder. - Administer additional depression rating scale (e.g., Leung Rating Scale) to support Spravato appeal. - Refill prazosin (dose and frequency not specified). - Refill Adderall (dose and frequency not specified). - Continue current antidepressant regimen (specific medications not mentioned). - Follow up as scheduled for ongoing management of treatment-resist ant depression. 2. Chronic Pain: - Patient is followed by pain management for chronic pain of unspecified etiology. - Current treatment includes oxycodone 7.5 mg (frequency not specified) and medical marijuana. - Patient reports a 50% reduction in opioid use since starting medical marijuana. - Adherence to pain management protocol is closely monitored with regular appointments every 3 weeks, urine drug screens, and pill counts. 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 - Maintain current pain management regimen with oxycodone 7.5 mg and medical marijuana. - Adhere to pain management protocols including drug screens and pill counts. she has medical cannabis- helps with sleep and pain 07/24/2024 Sharron Clark presents with ongoing PTSD symptoms, including nightmares and hypervigilance, while dealing with legal issues related to a condo dispute and personal injury. Posttraumatic Stress Disorder (PTSD) Assessment: Patient continues to experience PTSD symptoms, particularly nightmares and hypervigilance. The ongoing legal issues related to the condo dispute are likely exacerbating her symptoms. She reports dark, emotionally distressing nightmares involving hysterical crying, which she attributes to suppressing emotions during the day. The patient anticipates a potential worsening of nightmares once the current stressors resolve. Prazosin has been effective in managing nightmares, with no significant side effects other than initial blood pressure changes. Plan: - Increase prazosin from 5 mg to 6 mg PO at bedtime for nightmare management - Informed patient of potential for lowered blood pressure and gradual titration - Advised on possibility of future dose reduction as symptoms improve - Continue current medications: - Lamotrigine 2 tablets twice daily - Duloxetine 60 mg daily - Encourage increased daytime use of hydroxyzine for anxiety management - Follow up in one month Anxiety Assessment: Patient reports ongoing anxiety symptoms, manifesting as skin picking behavior around fingernails. Current treatment includes hydroxyzine as needed, which may be underutilized during daytime hours. Plan: - Encourage more frequent daytime use of hydroxyzine for anxiety management - Continue current anxiety management medications - Monitor for improvement in anxiety symptoms and related behaviors (e.g., skin picking) Psychosocial Stressors Assessment: Patient is dealing with significant legal stressors related to a condo dispute, involving two separate legal actions. These ongoing issues are likely contributing to her PTSD symptoms and overall stress levels. Despite these challenges, she reports maintaining focus at work and benefiting from living with a supportive individual who helps maintain a good daily routine. Plan: - Encourage continuation of supportive living arrangement - Reinforce the importance of maintaining daily routines for stress management - Monitor impact of legal stressors on mental health symptoms the note is transcribed using speech recognition software. It is a reflection of a visit with the patient. It might have some inaccuracy, including medication names and transcribing errors, though efforts have been made to correct them. she has medical cannabis- helps with sleep and pain 08/28/2024 Other Yvette Clark, female patient with history of depression, anxiety, and PTSD, presenting with worsening nightmares and depression following recent loss of father. Posttraumatic Stress Disorder (PTSD) Assessment: Patient reports worsening nightmares following the recent loss of her father on the 7th of this month. This exacerbation of PTSD symptoms is likely related to the acute grief and stress associated with the loss. Current treatment with prazosin has been insufficient to manage the increased severity of nightmares. Plan: - Increase prazosin to 7 mg at bedtime (5 mg + 2 mg tablets) - Discontinue 1 mg prazosin tablet Major Depressive Disorder Assessment: Patient acknowledges worsening depression, likely exacerbated by recent loss of father. Reports difficulty focusing at work, which she has just returned to after a period of leave. Current treatment with lamotrigine and duloxetine may need adjustment if symptoms persist or worsen. Plan: - Continue lamotrigine 100 mg PO twice daily - Continue duloxetine 60 mg PO twice daily - Appealing denial for Spravato treatment - Encouraged patient to explore [facility] telehealth counseling options through work Anxiety Disorder Assessment: Patient reports increased use of as-needed hydroxyzine over the past couple of weeks, indicating heightened anxiety symptoms. Patient also disclosed using a Xanax (alprazolam) borrowed from roommate, which provided temporary relief without sedation. Plan: - Continue buspirone 15 mg PO twice daily - Continue hydroxyzine 25 mg PO three times daily as needed - Follow up in one month Attention Deficit Hyperactivity Disorder (ADHD) Assessment: Patient continues to experience fatigue, managed with current Adderall ER dosage. Plan: - Continue Adderall ER 30 mg daily for fatigue Insomnia Assessment: Patient's sleep issues are being addressed with current medication regimen. Plan: - Continue restoril 8 mg at bedtime for sleep the note is transcribed using speech recognition software. It is a reflection of a visit with the patient. It might have some inaccuracy, including medication names and transcribing errors, though efforts have been made to correct them. she has medical cannabis- helps with sleep and pain 09/26/2024 Other Yvette Clark presents with ongoing depression, anxiety, nightmares, and insomnia related to a legal situation, as well as chronic fatigue and hip pain from a previous fall. Depression Assessment: Patient reports ongoing depression symptoms, which she attributes to her current legal situation. She expresses a logical understanding that her condition should improve once the legal matters are resolved, but currently feels stuck in a state of constant survival mode. The depression appears to be chronic and significantly impacting her daily functioning. Plan: - Continue lamotrigine 100 mg PO twice daily - Continue duloxetine 62 mg PO daily - Follow up in one month Anxiety Assessment: Patient continues to experience anxiety symptoms, which are being managed with medication. She reports that hydroxyzine helps prevent anxiety spirals during the daytime. The ongoing legal situation appears to be a significant contributor to her anxiety. Plan: - Continue buspirone 15 mg PO twice daily - Continue hydroxyzine 25 mg PO three times daily as needed for anxiety Nightmares Assessment: Patient reports persistent nightmares despite current prazosin dose. She notes possible crying during sleep, evidenced by water splotches on her pillowcases. The nightmares are not improving with the current medication regimen. Plan: - Increase prazosin to 8 mg PO at bedtime Insomnia Assessment: Patient reports fragmented sleep patterns, often waking at 2-3 AM and having difficulty returning to sleep. This sleep disturbance is likely exacerbated by her nightmares and ongoing hip pain. Plan: - Continue Rozerem 8 mg PO at bedtime Chronic Fatigue Assessment: Patient has a history of chronic fatigue, which is being managed with stimulant medication. Plan: - Continue Adderall XR 30 mg PO daily - Note: Patient received partial fill of 20 tablets due to pharmacy stock issues. Will need refill in approximately two weeks. Hip Pain Assessment: Patient reports ongoing hip pain related to a previous fall through a floor. She is scheduled for an injection to address this issue following her legal appointment. Plan: - Patient to proceed with scheduled hip injection the note is transcribed using speech recognition software. It is a reflection of a visit with the patient. It might have some inaccuracy, including medication names and transcribing errors, though efforts have been made to correct them. Yvette Clark presents with ongoing depression, anxiety, nightmares, and insomnia related to a legal situation, as well as chronic fatigue and hip pain from a previous fall. Depression Assessment: Patient reports ongoing depression symptoms, which she attributes to her current legal situation. She expresses a logical understanding that her condition should improve once the legal matters are resolved, but currently feels stuck in a state of constant survival mode. The depression appears to be chronic and significantly impacting her daily functioning. Plan: - Continue lamotrigine 100 mg PO twice daily - Continue duloxetine 62 mg PO daily - Follow up in one month Anxiety Assessment: Patient continues to experience anxiety symptoms, which are being managed with medication. She reports that hydroxyzine helps prevent anxiety spirals during the daytime. The ongoing legal situation appears to be a significant contributor to her anxiety. Plan: - Continue buspirone 15 mg PO twice daily - Continue hydroxyzine 25 mg PO three times daily as needed for anxiety Nightmares Assessment: Patient reports persistent nightmares despite current prazosin dose. She notes possible crying during sleep, evidenced by water splotches on her pillowcases. The nightmares are not improving with the current medication regimen. Plan: - Increase prazosin to 8 mg PO at bedtime Insomnia Assessment: Patient reports fragmented sleep patterns, often waking at 2-3 AM and having difficulty returning to sleep. This sleep disturbance is likely exacerbated by her nightmares and ongoing hip pain. Plan: - Continue Rozerem 8 mg PO at bedtime Chronic Fatigue Assessment: Patient has a history of chronic fatigue, which is being managed with stimulant medication. Plan: - Continue Adderall XR 30 mg PO daily - Note: Patient received partial fill of 20 tablets due to pharmacy stock issues. Will need refill in approximately two weeks. Hip Pain Assessment: Patient reports ongoing hip pain related to a previous fall through a floor. She is scheduled for an injection to address this issue following her legal appointment. Plan: - Patient to proceed with scheduled hip injection the note is transcribed using speech recognition software. It is a reflection of a visit with the patient. It might have some inaccuracy, including medication names and transcribing errors, though efforts have been made to correct them. she has medical cannabis- helps with sleep and pain Plan Of Treatment Next Appt Details Provider Name:Edmundo banks, 11/21/2024 09:45:00 AM, [address], [address], [place], [address], Insurance Providers Payer Name Payer Address Payer Phone Subscriber Number Group Number Insured Name Patient Relationship to Insured Coverage Start Date Coverage End Date [facility] [address] [place] [address] [id number] YVETTE CLARK Self - patient is the insured Medical (General) History Medical History History ICD Code Problems: Adult attention deficit hypera ctivity disorder Chronic fatigue syndrome Chronic post-traumatic stress disorder Generalized anxiety disorder Insomnia Long-term current use of drug therapy Nightmares associated with chronic post- traumatic stress disorder Non-24 hour sleep-wake cycle Panic disorder without agoraphobia Primary insomnia Recurrent major depressive episodes, mod erate ,
--- OUTSIDE RECORDS SUMMARY | 2024-10-24 10:27 | XMS_ITS | Clinical Summary ---
Author Organization [facility] Address [address] [place] [address] Care Team Providers Care Act English Tutor Name Role Phone Job Gold MD Primary Care Provider [phone] Source Comments [facility],non-owned Affiliates and Associated Physician Practices is amultiple site organization consisting of ambulatory clinics and hospital sitesin [place], [place], [place] and [place]. This disclosure is being madepursuant to the Care Everywhere program and may not contain all information available regarding this patient. Last updated 17.[facility] [place] Allergies Active Allergy Reactions Criticality Noted Date [...] Active mometasone (NASONEX) 50 MCG/ACT nasal spray [place] 1 [place] into each nostril 2 times daily Active [...] on file Legal Sex Female 12:53 PM [employer] Gender Identity Not on file Sexual Orientation Not on file Last Filed Vital Signs Vital Sign Reading Time Taken Comments Blood Pressure 122/99 04/01/2015 2:44 PM [employer] Pulse 85 04/01/2015 2:44 PM [employer] Temperature 37.1 C (98.8 F) 04/01/2015 1:34 PM [employer] Respiratory Rate 14 04/01/2015 2:44 PM [employer] Oxygen Saturation 99% 04/01/2015 2:44 PM [employer] Inhaled Oxygen Concentration - - Weight 68 kg (150 lb) 04/01/2015 1:34 PM [employer] Height 160 cm (5' 3) 04/01/2015 1:34 PM [employer] Body Mass Index 26.57 04/01/2015 1:34 PM [employer] Plan of Treatment Health Maintenance Due Date [...] season) 2023 DEPRESSION SCREENING 04/11/2024 INFLUENZA VACCINE (#1) 2024 ZOSTER VACCINE (1 of 2) 12/24/2027 [...] patient's age to complete [place] [address] [facility] SELF PAY NO INSURANCE Member Subscriber Plan / Payer (Ef fective for All Dates) Name:Yvette Clark Member ID:Not on file Relation to Subscriber:Not on file Name:YVETTE CLARK Subscriber ID:Not on file (Home) Address: [address] [place] [address] [place] [address] Payer ID:Not on file Group ID:Not on file Type:Self Pay Address: [place], [place] Care Teams Act English Tutor Relationship Specialty Start Date End Date Job Gold MD [address] [place] [id number] PCP - General 04/07/11
--- OUTSIDE RECORDS SUMMARY | 2024-10-24 10:27 | XMS_ITS | Clinical Summary ---
Author Organization [facility] Address [facility] [place] [address] Care Team Providers Care Alum Plant Supervisor Name Role Phone Edilma Gold MD Primary Care Provider [phone] Social History Tobacco Use Types Packs/Day Years [...] patient's age to complete this topic Insurance [facility] Care Teams Alum Plant Supervisor Relationship Specialty Start Date End Date Edilma Gold MD [facility] [address] [address] PCP - General FAMILY PRACTICE 02/09/23
[2024-10-24 11:20] LABS: Hematocrit 38.1 % (37.0-47.0); Hemoglobin 12.5 g/dL (12.0-15.0); Immature Granulocyte Percent A 0.4 % (0-0.5); Lymphocytes Absolute Auto 2.46 K/mm3 (0.9-3.2); Mean Corpuscular HGB Conc 32.8 g/dl (32-36); Mean Corpuscular Hemoglobin 29.9 pg (26-34); Mean Corpuscular Volume 91.1 fl (80-100); Nucleated Red Blood Cells Absolute Auto 0.000 K/mm3 (0.0-0.012); Nucleated Red Blood Cells Perc 0.0 % (0.0-0.2); Platelet Count Result 267 k/mm3 (150-375); Red Blood Count 4.18 M/mm3 (4.2-5.4); White Blood Count 7.8 K/mm3 (4.5-10.0)
[2024-10-24 11:28] LABS: Alanine Aminotransferase 15 U/L (6-35); Aspartate Amino Transferase 23 U/L (14-36); Bilirubin,Total 0.3 mg/dL (0.2-1.3); Blood Urea Nitrogen 11 mg/dL (7-17); Calcium 8.9 mg/dL (8.4-10.2); Chloride 105 mmol/L (98-107); Cholesterol 227 mg/dL (0-200); Estimated Glomerular Filt Rate > 60; Potassium 4.4 mmol/L (3.4-5.0)
[2024-10-24 12:04] LABS: Thyroid Stimulating Hormone 2.030 uIU/mL (0.465-4.680)
[2024-10-24 12:23] LABS: Albumin Level 4.5 g/dL (3.5-5.1); Alkaline Phosphatase 53 U/L (38-126); Anion Gap 8 mmol/L (4-12); Carbon Dioxide 22 mmol/L (22-30); Glucose 102 mg/dL (65-110); HDL Direct 53 mg/dL; Sodium 135 mmol/L (137-145); Total Protein 7.8 g/dL (6.3-8.2); Triglycerides 145 mg/dL (<150)
== END 2024-10-24 10:13 | disposition home or self-care (01) ==
LOC: ANHLAB 10:15
PROVIDERS: PCP Family Medicine; Visit Provider Family Medicine
DX: E04.2 Nontoxic multinodular goiter (principal); I10 Essential (primary) hypertension; E78.2 Mixed hyperlipidemia; J45.20 Mild intermittent asthma, uncomplicated; R79.89 Other specified abnormal findings of blood chemistry; E66.3 Overweight; Z79.899 Other long term (current) drug therapy
CPT/HCPCS: 36415; 80053; 80061; 84443; 85025